=== PATIENT | female | born 1945 | race Caucasian/White ===

== ENCOUNTER → 2017-03-21 11:06 | Emergency (ER) | payer MEDICARE, OTHER ==
[~2017-03-21 11:06] MED LIST: Acetaminophen TAB* 325 MG PO ONE; Ibuprofen TAB* 400 MG ONE; Ibuprofen TAB* 400 MG PO ONE
[2017-03-21 11:13] VITALS: BP 168/94
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
--- NOTE | 2017-03-21 12:27 | RAD ---
Indication: Fall, foot injury. 3 views of the right foot demonstrates diffuse osteopenia. No fracture is identified. No other bone or joint abnormalities identified. Degenerative changes of the first metatarsal phalangeal joint is noted. IMPRESSION: No fracture is identified. Diffuse osteopenia is noted.
--- NOTE | 2017-03-21 12:31 | RAD ---
INDICATION: Fall. Right thumb pain. COMPARISON: None TECHNIQUE: AP, lateral, and oblique views were obtained. FINDINGS: There are no acute bony findings. There is osteopenia. There is interphalangeal and metacarpophalangeal joint space narrowing. There is minor osteoarthritis at the first CMC articulation. There is minor radiocarpal osteoarthritis. There is mild ulnar deviation at the MCP joints. The soft tissues are normal. IMPRESSION: ARTHRITIC CHANGE. NO ACUTE FINDINGS
== END | disposition home or self-care (01) ==
LOC: ED 11:06
DX: S90.31XA Contusion of right foot, initial encounter (principal); M79.1 Myalgia; W19.XXXA Unspecified fall, initial encounter; Y93.9 Activity, unspecified; Y92.9 Unspecified place or not applicable; Y99.9 Unspecified external cause status
CPT/HCPCS: 99282; A9270-GY

== ENCOUNTER 2017-10-13 18:24 | Emergency (ER) | payer MEDICARE ==
[2017-10-13] MEDS ORDERED: Acetaminophen ADULT LIQ* 650 MG/20.3 ML UDC PO ONE (19:36)
[2017-10-13 20:09] LABS: ABS Basophils 0.1 10^3/ul (0-0.2); ABS Eosinophils 0.2 10^3/ul (0-0.6); ABS Lymphocytes 1.9 10^3/ul (1.0-4.8); ABS Monocytes 0.7 10^3/ul (0-0.8); ABS Neutrophils 4.5 10^3/ul (1.5-7.7); ABS Nucleated RBC 0 10^3/ul; Eosinophil % 2.3 % (0-6); Hematocrit 42 % (35-47); Hemoglobin 13.5 g/dl (12.0-16.0); Mean Corpuscular HGB Conc 32 g/dl (31-36); Mean Corpuscular Hemoglobin 31 pg (27-31); Mean Corpuscular Volume 96 fL (80-97); Mean Platelet Volume 8 um3 (7.4-10.4); Nucleated Red Blood Cells % 0; Platelet Count 310 10^3/ul (150-450); Red Blood Count 4.36 10^6/ul (4.0-5.4); Red Cell Distribution Width 17 % (10.5-15); White Blood Count 7.5 10^3/ul (3.5-10.8)
[2017-10-13 20:10] LABS: EGFR Non-African American 47.1 (>60)
[2017-10-13 20:11] VITALS: BP 176/110
--- NOTE | 2017-10-13 20:13 | RAD ---
INDICATION: Intracranial injury COMPARISON: CT brain September 06, 2015 TECHNIQUE: Noncontrast axial source images were acquired from the skull base to the vertex. FINDINGS: Ventricles/sulci: The ventricles and cisterns unchanged with diffuse cortical volume loss with compensatory dilatation of the ventricles and CSF spaces. This is particular prominent in the frontal lobes.. Brain parenchyma: There is periventricular and subcortical white matter change compatible with chronic ischemia. Intracranial hemorrhage:None. Extra-axial spaces: There are no abnormal extra axial fluid collections or evidence of extra-axial mass. Calvarium: There is no calvarial fracture or other calvarial abnormality. Scalp: There is no evidence of scalp or extracalvarial soft tissue abnormality. Paranasal sinuses/mastoid: The paranasal sinuses and mastoid air cells are clear. Other: None. IMPRESSION: NO ACUTE INTRACRANIAL FINDINGS. DIFFUSE CORTICAL INVOLUTIONAL CHANGES WITH FRONTAL LOBE PREDILECTION, UNCHANGED.
--- NOTE | 2017-10-13 20:16 | RAD ---
INDICATION: Fell out of bed. Injury. COMPARISON: Cervical spine September 06, 2015 TECHNIQUE: Noncontrast axial source images was performed from the skull base to the thoracic inlet. Coronal and and sagittal reformatted images were generated. FINDINGS: Vertebrae: There is no fracture or acute focal bony lesion. There are postoperative changes with anterior cervical fusion from C4 through C6. There is no evidence of hardware failure. There is advanced degenerative disc disease both above and below the levels of fusion appearing unchanged Alignment: The craniocervical junction appears normal. The cervical vertebrae are normally aligned. Central Canal: There are no significant CT abnormalities of the central canal or foramina. MR imaging is a more sensitive method to evaluate the canal and foramina. Intervertebral disc spaces: As above. Brain: The visualized brain appears unremarkable. Soft tissues: There is a 1.3 cm left thyroid nodule, unchanged. The prevertebral soft tissues appear normal. The lung apices are clear. IMPRESSION: No acute findings. Anterior fusion C4-C6. Underlying osteoarthritis
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
== END 2017-10-13 21:03 | disposition home or self-care (01) ==
LOC: ED 18:24
DX: S00.03XA Contusion of scalp, initial encounter (principal); W06.XXXA Fall from bed, initial encounter; Y93.9 Activity, unspecified; Y92.9 Unspecified place or not applicable; M54.6 Pain in thoracic spine; M54.2 Cervicalgia; R41.82 Altered mental status, unspecified; E11.9 Type 2 diabetes mellitus without complications; E04.1 Nontoxic single thyroid nodule; I10 Essential (primary) hypertension; Z95.0 Presence of cardiac pacemaker; Z86.711 Personal history of pulmonary embolism; K21.9 Gastro-esophageal reflux disease without esophagitis; Z87.440 Personal history of urinary (tract) infections; F41.9 Anxiety disorder, unspecified; F32.9 Major depressive disorder, single episode, unspecified
CPT/HCPCS: 36415; 70450; 72125; 80053; 85025; 99282

== ENCOUNTER 2017-10-20 19:02 | Inpatient (IN) | payer MEDICARE ==
[2017-10-20 19:34] LABS: ABS Basophils 0.1 10^3/ul (0-0.2); ABS Eosinophils 0.2 10^3/ul (0-0.6); ABS Lymphocytes 1.6 10^3/ul (1.0-4.8); ABS Monocytes 0.8 10^3/ul (0-0.8); ABS Neutrophils 5.5 10^3/ul (1.5-7.7); ABS Nucleated RBC 0.01 10^3/ul; Eosinophil % 2.8 % (0-6); Hematocrit 43 % (35-47); Hemoglobin 14.3 g/dl (12.0-16.0); Lymphocyte % 19.5 % (25-47); Mean Corpuscular HGB Conc 34 g/dl (31-36); Mean Corpuscular Hemoglobin 32 pg (27-31); Mean Corpuscular Volume 95 fL (80-97); Mean Platelet Volume 8 um3 (7.4-10.4); Nucleated Red Blood Cells % 0.1; Platelet Count 246 10^3/ul (150-450); Red Blood Count 4.47 10^6/ul (4.0-5.4); Red Cell Distribution Width 16 % (10.5-15); White Blood Count 8.3 10^3/ul (3.5-10.8)
[2017-10-20 19:44] LABS: INR 0.99 (0.77-1.02)
[2017-10-20] MEDS ORDERED: Iodixanol* (CONTRAST) 320 MG/ML 100 ML SDV IV ONE (20:27)
[2017-10-20 20:43] LABS: Urine Appearance Clear; Urine Blood Negative (Negative); Urine Color Yellow; Urine Ketones Negative (Negative); Urine Protein Negative (Negative); Urine Urobilinogen Negative (Negative)
--- NOTE | 2017-10-20 21:15 | RAD ---
Indication: Fall, head injury. CT of the brain was performed without IV contrast. Ventricular structures are midline. No midline shift is noted. Central and cortical atrophy is noted. Mastoid air cells and paranasal sinuses are otherwise unremarkable. Mastoid air cells and paranasal sinuses are unremarkable. When compared to previous exam of October 13, 2017 no significant change is noted. IMPRESSION: No intracranial mass or hemorrhage is noted. Diffuse involutional changes of the brain.
[2017-10-20] MEDS ORDERED: Lidocaine PATCH 5%* 1 PATCH ONE (21:16)
--- NOTE | 2017-10-20 21:30 | RAD ---
Indication: Fall, head injury and neck pain. CT of the cervical spine was obtained in the axial plane. Sagittal and coronal reconstructed images were obtained. Comparison is made with previous exam dated October 13, 2017. There is fragmentation of the odontoid process which has been present as far back as 2014. This likely represents an old ununited fracture of the distal tip of the odontoid process. Sclerosis is noted. Calcification of the transverse ligament is noted. There is grade 1 spondylolisthesis of C2 on 3 without fracture. At C3-C4 degenerative disc disease with spondylytic ridge is noted. There is anterior fusion of C5-C6 and C7 with bone graft and anterior plate and screws. Degenerative changes of C6-C7 is noted. Grade 1 spondylolisthesis of C7 on T1 is noted. IMPRESSION: There is likely an old fracture of the tip of the odontoid process which was present as far back as September 05, 2015. This has not significant changed. 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 Anterior fusion of C4-C6 with anterior plate and screws. Degenerative disc disease at C3-C4 and C6-C7 is noted.
--- NOTE | 2017-10-20 21:37 | RAD ---
Indication: Fall, facial injury. CT of the facial bones was obtained in the axial plane. Sagittal and coronal reconstructed images were obtained. There is a comminuted fracture of the nasal arch with fragments on the left and on the right. The arch on the left appears to BE minimally depressed. The tip of the arch is also slightly depressed. The maxilla and nasal spine is intact. The pterygoid plates are intact. The temporal mandibular joint and mandible are unremarkable. Zygomatic arch appears to be intact. The orbits are intact without fracture. Maxillary sinuses also demonstrates no fracture. Degenerative changes of the temporomandibular joints are noted bilaterally. IMPRESSION: Mildly Comminuted fracture of the nasal arch both on the tip, left and right side with slightly depressed tip and the left nasal arch.
--- NOTE | 2017-10-20 21:44 | RAD ---
Indication: Left rib pain, left mid and abdomen pain. Contrast: Administered 65.0 ml of VISAPAQUE 320 mg/ml CT of the chest, abdomen and pelvis was performed after IV contrast administration. Coronal and sagittal reconstructed images were obtained. Oral contrast was given. Inferior thyroid lobes are unremarkable aside from a nodule in the lower pole left lobe measuring 14 mm. Small 3 to 5 mm pretracheal lymph nodes are noted. The heart demonstrates no pericardial effusion. The trachea and major bronchi appear patent. There is some atelectasis in the right lower lobe. Left lung field is clear. Atelectasis may be postoperative in nature. There is a fracture fifth and sixth ribs on the left. There may be healed rib fractures on the right. CT of the abdomen and pelvis demonstrates liver to be normal in size. No intrahepatic ductal dilatation is noted. The patient status post cholecystectomy. The spleen is normal in size. Pancreas demonstrates no mass or pancreatic ductal dilatation. Common duct is not dilated. There is bilateral adrenal hyperplasia noted. The kidneys demonstrate symmetric nephrograms with cortical cyst in the left kidney. No hydronephrosis of either kidney is noted. CT of the abdomen and pelvis demonstrates no dilated loops of bowel. No free fluid is identified. There is a hiatal hernia present. IMPRESSION: Bibasilar atelectasis in the right base. Fractures of left fifth and sixth ribs on the left. Likely healed fractures on the right ribs. Left lower lobe thyroid nodule measuring 14 mm. No evidence of solid organ injury is noted in the abdomen or pelvis.
[2017-10-20] MEDS ORDERED: Lidocaine PATCH 5%* 1 PATCH TRANSDERM ONE (22:00)
[2017-10-20] MEDS ORDERED: Ketorolac INJ* 30 MG/ML 1 ML VIAL IV PUSH ONE (22:18)
[2017-10-20] MEDS ORDERED: HYDROcodone/ACETAMIN 5-325 MG* 1 TAB PO ONE (22:18)
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
[2017-10-20] MEDS ORDERED: Sucralfate TAB* 1 GM PO ONE (23:04)
[2017-10-21] MEDS ORDERED: HYDROcodone/ACETAMIN 5-325 MG* 1 TAB PO ONE (04:19)
[2017-10-21] MEDS ORDERED: Ondansetron INJ* 2 MG/ML VIAL IV ONE (04:20)
[2017-10-21] MEDS ORDERED: Melatonin (NF) 3 MG TAB PO PRN (06:26)
[2017-10-21] MEDS ORDERED: Acetaminophen TAB* 325 MG PO PRN (06:26)
[2017-10-21] MEDS ORDERED: Thiamine IV* 100 MG/ML 2 ML VIAL IM ONE (06:28)
[2017-10-21] MEDS ORDERED: Omeprazole CAP* 20 MG PO PRN (06:28)
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
[2017-10-21] MEDS ORDERED: Metoprolol Tartrate IV* 1 MG/ML 5 ML VIAL IV ONE (06:47)
[2017-10-21 07:09] LABS: ABS Basophils 0.1 10^3/ul (0-0.2); ABS Eosinophils 0.1 10^3/ul (0-0.6); ABS Lymphocytes 1.1 10^3/ul (1.0-4.8); ABS Monocytes 0.9 10^3/ul (0-0.8); ABS Neutrophils 8.5 10^3/ul (1.5-7.7); ABS Nucleated RBC 0 10^3/ul; Eosinophil % 0.7 % (0-6); Hematocrit 41 % (35-47); Hemoglobin 13.5 g/dl (12.0-16.0); Lymphocyte % 10.7 % (25-47); Mean Corpuscular HGB Conc 33 g/dl (31-36); Mean Corpuscular Hemoglobin 32 pg (27-31); Mean Corpuscular Volume 95 fL (80-97); Mean Platelet Volume 8 um3 (7.4-10.4); Nucleated Red Blood Cells % 0; Platelet Count 243 10^3/ul (150-450); Red Blood Count 4.29 10^6/ul (4.0-5.4); Red Cell Distribution Width 16 % (10.5-15); White Blood Count 10.6 10^3/ul (3.5-10.8)
[2017-10-21 07:25] LABS: EGFR Non-African American 33.4 (>60)
[2017-10-21] MEDS: NS 0.9% 1000 ML* 1,000 ML IV SCH ×2 (07:36→18:20)
[2017-10-21] MEDS: Ondansetron INJ* 2 MG/ML VIAL IV PRN ×2 (08:12→20:45)
[2017-10-21] MEDS: LORazepam INJ* 2 MG/ML 1 ML VIAL IM SCH ×5 (08:12→22:06)
[2017-10-21] MEDS: Diltiazem CD CAP* 240 MG PO SCH (08:15)
[2017-10-21] MEDS: Docusate CAP* 100 MG PO SCH ×2 (08:15→20:31)
[2017-10-21] MEDS: Thiamine TAB* 100 MG TAB PO SCH (08:16)
[2017-10-21] MEDS: Multivitamins/Minerals TAB PO SCH (08:16)
[2017-10-21] MEDS: Folic Acid TAB* 1 MG PO SCH (08:16)
[2017-10-21] MEDS ORDERED: Lidocaine PATCH 5%* 1 PATCH TRANSDERM SCH (09:00)
--- NOTE | 2017-10-21 16:02 | PN ---
Subjective Date of Service: 10/21/17 Interval History: Patient is not sure why she is here. She says she fell out of bed, did not hurt herself. When alcohol is mentioned, she has a blank stare. Family History: Unchanged from Admission Social History: Unchanged from Admission Past Medical History: Unchanged from Admission Objective Active Medications: Acetaminophen (Tylenol Tab*) 650 mg PO Q6H PRN PRN Reason: FEVER/PAIN Diltiazem HCl (Cardizem Cd Cap*) 240 mg PO DAILY [facility] Last Admin: 10/21/17 08:15 Dose: 240 mg Docusate Sodium (Colace Cap*) 200 mg PO BID [facility] Last Admin: 10/21/17 08:15 Dose: 200 mg Folic Acid (Folvite Tab*) 1 mg PO DAILY [facility] Last Admin: 10/21/17 08:16 Dose: 1 mg Heparin Sodium (Porcine) (Heparin Vial(*)) 5,000 units SUBCUT Q8HR [facility] Sodium Chloride (Ns 0.9% 1000 Ml*) 1,000 mls @ 100 mls/hr IV PER RATE [facility] Last Admin: 10/21/17 07:36 Dose: 100 mls/hr Lorazepam (Ativan Inj*) 0 - 6 mg IM .PER [facility] PROTOCOL [facility] PRN Reason: Protocol Last Admin: 10/21/17 13:56 Dose: 2 mg Multivitamins/Minerals (Theragran/Minerals Tab*) 1 tab PO DAILY [facility] Last Admin: 10/21/17 08:16 Dose: 1 tab Omeprazole (Prilosec Cap*) 20 mg PO DAILY PRN PRN Reason: HEARTBURN Last Admin: 10/21/17 08:16 Dose: 20 mg Ondansetron HCl (Zofran Inj*) 4 mg IV Q6H PRN PRN Reason: NAUSEA Last Admin: 10/21/17 08:12 Dose: 4 mg Oxycodone HCl (Roxycodone Tab*) 5 mg PO Q4H PRN PRN Reason: PAIN Thiamine HCl (Vitamin B-1 Tab*) 100 mg PO DAILY [facility] Last Admin: 10/21/17 08:16 Dose: 100 mg Tramadol HCl (Ultram*) 50 mg PO Q6H PRN PRN Reason: PAIN Zolpidem Tartrate (Ambien Tab*) 10 mg PO BEDTIME PRN PRN Reason: SLEEP Vital Signs - 8 hr 12/24/17 12/24/17 15:23 15:37 Respiratory 16 Rate O2 Sat by Pulse 97 Oximetry Oxygen Devices in Use Now: None Appearance: awake and no distress Eyes: No Scleral Icterus Ears/Nose/Mouth/Throat: NL Teeth, Lips, Gums Neck: NL Appearance and Movements; NL JVP Respiratory: Symmetrical Chest Expansion and Respiratory Effort Cardiovascular: NL Sounds; No Murmurs; No JVD Skin: No Rash or Ulcers Neurological: - - alert, oriented to self, place, not day Lines/Tubes/Other Access: Clean, Dry and Intact Peripheral IV Nutrition: Taking PO's Result Diagrams: 10/21/17 06:55 10/21/17 06:55 Assess/Plan/Problems-Billing Assessment: 72 year old woman admitted w/ mechanical fall, alcohol withdrawal. - Patient Problems (1) Alcohol withdrawal Current Visit: Yes Status: Acute Priority: High Code(s): F10.239 - ALCOHOL DEPENDENCE WITH WITHDRAWAL, UNSPECIFIED SNOMED Code(s): 228164553 Comment: -Patient requiring PRN ativan today, less often as day goes by -Still at risk of seizure, needs 3-5 day detox, continue [facility] protocol -Will offer patient acute rehab after detox (2) Acute kidney injury Current Visit: Yes Status: Acute Priority: Medium Code(s): N17.9 - ACUTE KIDNEY FAILURE, UNSPECIFIED SNOMED Code(s): 09017607 Comment: -creatinine elevated since admission, concern re prerenal azotemia -continue IVF and recheck in AM (3) DVT prophylaxis Current Visit: Yes Status: Chronic Priority: Low Code(s): EQI8736 - SNOMED Code(s): 791506304 Comment: -SCDs Status and Disposition: Needs full inpatient stay due to risk of seizure in next 2-3 days
[2017-10-21] MEDS: oxyCODONE TAB* 5 MG TAB PO PRN (20:31)
[2017-10-22] MEDS: LORazepam INJ* 2 MG/ML 1 ML VIAL IM SCH ×3 (00:06→05:36)
[2017-10-22] MEDS: traMADol TAB* 50 MG PO PRN ×2 (00:07→16:32)
[2017-10-22] MEDS: oxyCODONE TAB* 5 MG TAB PO PRN (03:33)
[2017-10-22] MEDS: Ondansetron INJ* 2 MG/ML VIAL IV PRN ×2 (03:35→16:09)
[2017-10-22] MEDS: Heparin VIAL(*) 5000 UNITS/ML VIAL (FIVE THOUSAND) SUBCUT SCH ×3 (05:37→21:16)
[2017-10-22] MEDS ORDERED: Omeprazole CAP* 20 MG PO SCH ×2 (06:00→11:00)
[2017-10-22 06:18] LABS: EGFR Non-African American 40.8 (>60)
[2017-10-22] MEDS: Diltiazem CD CAP* 240 MG PO SCH (07:50)
[2017-10-22] MEDS: NS 0.9% 1000 ML* 1,000 ML IV SCH (07:50)
[2017-10-22] MEDS: Multivitamins/Minerals TAB PO SCH (07:50)
[2017-10-22] MEDS: Folic Acid TAB* 1 MG PO SCH (07:51)
[2017-10-22] MEDS: Docusate CAP* 100 MG PO SCH ×2 (07:51→21:15)
[2017-10-22] MEDS: Thiamine TAB* 100 MG TAB PO SCH (07:51)
[2017-10-22] MEDS ORDERED: Dextrose 50% Syringe 50 ML* 25 GM/50 ML SYRINGE IV PUSH PRN (10:18)
[2017-10-22] MEDS: Insulin LISPRO* 1 UNITS UNIT SUBCUT SCH ×3 (12:52→21:10)
[2017-10-22] MEDS: Sucralfate TAB* 1 GM PO SCH ×2 (13:18→16:33)
[2017-10-22] MEDS: Potassium Chlor TAB* 20 MEQ TAB.ER PO ONE ×2 (13:18→13:24)
[2017-10-22] MEDS ORDERED: Potassium Chloride LIQUID* 20 MEQ PACKET PO ONE (14:00)
[2017-10-22] MEDS: Omeprazole CAP* 20 MG PO SCH (16:34)
--- NOTE | 2017-10-22 17:03 | PN ---
Subjective Date of Service: 10/22/17 Interval History: Patient pleasant and somewhat confused, often losing train of thought. Patient was hallucinating per nursing documentation but doesn't remember hallucinating. Patient starts to ask many questions but loses train of thought frequently and makes little sense. Patient states she is having pain in chest and upper abdomen that feels like heartburn, is 8/10 in severity at its worst, does not radiate, is worse with food, and is reproducible with palpation. Patient has 8/ 10 pain in ribs which responds to pain medication. Patient denies melena, N/V, or hematemesis. Patient denies SOB, F/C, Dizziness, palpitations. Patient states that she only drinks 2 glasses of wine a day. Family History: Unchanged from Admission Social History: Unchanged from Admission Past Medical History: Unchanged from Admission Objective Active Medications: Acetaminophen (Tylenol Tab*) 650 mg PO Q6H PRN PRN Reason: FEVER/PAIN Dextrose (D50w Syringe 50 Ml*) 12.5 gm IV PUSH .FOR FS < 60 - SS PRN PRN Reason: FS < 60 Diltiazem HCl (Cardizem Cd Cap*) 240 mg PO DAILY [facility] Last Admin: 10/22/17 07:50 Dose: 240 mg Docusate Sodium (Colace Cap*) 200 mg PO BID [facility] Last Admin: 10/22/17 07:51 Dose: 200 mg Folic Acid (Folvite Tab*) 1 mg PO DAILY [facility] Last Admin: 10/22/17 07:51 Dose: 1 mg Heparin Sodium (Porcine) (Heparin Vial(*)) 5,000 units SUBCUT Q8HR [facility] Last Admin: 10/22/17 13:18 Dose: 5,000 units Insulin Human Lispro (Humalog*) 0 units SUBCUT ACHS [facility] PRN Reason: Protocol Last Admin: 10/22/17 12:52 Dose: Not Given Lorazepam (Ativan Inj*) 0 - 6 mg IM .PER [facility] PROTOCOL [facility] PRN Reason: Protocol Last Admin: 10/22/17 05:36 Dose: 2 mg Multivitamins/Minerals (Theragran/Minerals Tab*) 1 tab PO DAILY [facility] Last Admin: 10/22/17 07:50 Dose: 1 tab Omeprazole (Prilosec Cap*) 40 mg PO 0730,1630 [facility] Last Admin: 10/22/17 16:34 Dose: 40 mg Ondansetron HCl (Zofran Inj*) 4 mg IV Q6H PRN PRN Reason: NAUSEA Last Admin: 10/22/17 16:09 Dose: 4 mg Oxycodone HCl (Roxycodone Tab*) 5 mg PO Q4H PRN PRN Reason: PAIN Last Admin: 10/22/17 03:33 Dose: 5 mg Sucralfate (Carafate*) 1 gm PO AC [facility] Last Admin: 10/22/17 16:33 Dose: 1 gm Thiamine HCl (Vitamin B-1 Tab*) 100 mg PO DAILY [facility] Last Admin: 10/22/17 07:51 Dose: 100 mg Tramadol HCl (Ultram*) 50 mg PO Q6H PRN PRN Reason: PAIN Last Admin: 10/22/17 16:32 Dose: 50 mg Zolpidem Tartrate (Ambien Tab*) 10 mg PO BEDTIME PRN PRN Reason: SLEEP Vital Signs - 8 hr 10/22/17 10/22/17 10/22/17 09:32 11:27 13:53 Temperature 97.7 F 98.3 F 98.3 F Pulse Rate 101 106 111 Respiratory 18 20 20 Rate Blood Pressure 131/79 145/81 133/79 (mmHg) O2 Sat by Pulse 90 89 93 Oximetry 10/22/17 10/22/17 10/22/17 15:16 16:00 16:32 Temperature 98.7 F Pulse Rate 110 Respiratory 16 20 Rate Blood Pressure 141/81 (mmHg) O2 Sat by Pulse 96 93 Oximetry Oxygen Devices in Use Now: Nasal Cannula - 1L Appearance: Patient is a 72yo female who appears stated age and is sitting in the bed in [facility]. Eyes: No Scleral Icterus, PERRLA Ears/Nose/Mouth/Throat: NL Teeth, Lips, Gums, Clear Oropharnyx, Mucous Membranes Moist Neck: NL Appearance and Movements; NL JVP, Trachea Midline Respiratory: Symmetrical Chest Expansion and Respiratory Effort, Clear to Auscultation Cardiovascular: NL Sounds; No Murmurs; No JVD, RRR, No Edema Abdominal: NL Sounds; No Tenderness; No Distention, No Hepatosplenomegaly Lymphatic: No Cervical Adenopathy Extremities: No Edema, No Clubbing, Cyanosis Skin: No Rash or Ulcers, No Nodules or Sclerosis Neurological: Alert and Oriented x 3, NL Sensation, NL Muscle Strength and Tone Result Diagrams: 10/21/17 06:55 10/22/17 05:34 Additional Lab and Data: Lab Results Assess/Plan/Problems-Billing Assessment: 72 year old woman admitted w/ mechanical fall, alcohol withdrawal. - Patient Problems (1) Acute kidney injury Current Visit: Yes Status: Acute Priority: Medium Code(s): N17.9 - ACUTE KIDNEY FAILURE, UNSPECIFIED SNOMED Code(s): 09418639 Comment: Creatinine elevated up to 1.52, concern for SABAS. Improved to 1.20 this morning after fluid. IVF discontinued, will monitor. (2) Alcohol withdrawal Current Visit: Yes Status: Acute Priority: High Code(s): F10.239 - ALCOHOL DEPENDENCE WITH WITHDRAWAL, UNSPECIFIED SNOMED Code(s): 065056448 Comment: Patient requiring PRN ativan today, less often as day goes by Still at risk of seizure, needs 3-5 day detox, continue [facility] protocol Will offer patient acute rehab after detox (3) DVT prophylaxis Current Visit: Yes Status: Chronic Priority: Low Code(s): [id number] - SNOMED Code(s): 298215089 Comment: -SCDs (4) Erosive esophagitis Current Visit: No Status: Acute Priority: High Code(s): K22.10 - ULCER OF ESOPHAGUS WITHOUT BLEEDING SNOMED Code(s): 92848894 Comment: Having pain similar to previous ulcer. BID PPI Sucralafate Etoh avoidance No signs of GI bleed at this time, unable to tell if patient was compliant with previous therapy. Did not have F/U EGD. (5) Hypokalemia Current Visit: Yes Status: Acute Code(s): E87.6 - HYPOKALEMIA SNOMED Code( s): 23793557 Comment: 3.3 this AM. Replaced, will recheck. (6) Full code status Current Visit: Yes Status: Acute Code(s): Z78.9 - OTHER SPECIFIED HEALTH STATUS SNOMED Code(s): 165261054 Status and Disposition: Needs full inpatient stay due to risk of seizure in next 2-3 days
[2017-10-22] MEDS: Zolpidem TAB* 10 MG PO PRN (21:15)
[2017-10-23] MEDS: Heparin VIAL(*) 5000 UNITS/ML VIAL (FIVE THOUSAND) SUBCUT SCH ×3 (05:43→21:25)
[2017-10-23] MEDS: Insulin LISPRO* 1 UNITS UNIT SUBCUT SCH ×4 (08:00→21:25)
[2017-10-23] MEDS: Omeprazole CAP* 20 MG PO SCH ×2 (08:15→16:47)
[2017-10-23] MEDS: Diltiazem CD CAP* 240 MG PO SCH (08:15)
[2017-10-23] MEDS: Docusate CAP* 100 MG PO SCH ×2 (08:16→21:25)
[2017-10-23] MEDS: Folic Acid TAB* 1 MG PO SCH (08:16)
[2017-10-23] MEDS: oxyCODONE TAB* 5 MG TAB PO PRN ×3 (08:16→18:20)
[2017-10-23] MEDS: Sucralfate TAB* 1 GM PO SCH ×3 (08:16→16:47)
[2017-10-23] MEDS: Multivitamins/Minerals TAB PO SCH (08:16)
[2017-10-23] MEDS: Thiamine TAB* 100 MG TAB PO SCH (08:16)
[2017-10-23] MEDS: Ondansetron INJ* 2 MG/ML VIAL IV PRN ×2 (08:17→19:49)
[2017-10-23 13:48] LABS: ABS Basophils 0.1 10^3/ul (0-0.2); ABS Eosinophils 0.2 10^3/ul (0-0.6); ABS Lymphocytes 1.1 10^3/ul (1.0-4.8); ABS Monocytes 0.6 10^3/ul (0-0.8); ABS Neutrophils 5.3 10^3/ul (1.5-7.7); ABS Nucleated RBC 0 10^3/ul; Eosinophil % 3.1 % (0-6); Hematocrit 37 % (35-47); Hemoglobin 12.2 g/dl (12.0-16.0); Lymphocyte % 15.1 % (25-47); Mean Corpuscular HGB Conc 33 g/dl (31-36); Mean Corpuscular Hemoglobin 32 pg (27-31); Mean Corpuscular Volume 97 fL (80-97); Mean Platelet Volume 9 um3 (7.4-10.4); Nucleated Red Blood Cells % 0; Platelet Count 183 10^3/ul (150-450); Red Blood Count 3.84 10^6/ul (4.0-5.4); Red Cell Distribution Width 16 % (10.5-15); White Blood Count 7.3 10^3/ul (3.5-10.8)
--- NOTE | 2017-10-23 13:52 | PN ---
Subjective Date of Service: 10/23/17 Interval History: Patient has continued pain in upper abdomen consistent with previous esophagitis. Patient is much less confused than yesterday. Discussed alcohol use with patient and patient claims she had not had a drink in more than 1 week before admission. Patient states she does not have pain in her ribs at time of interview. Patient denies SOB, N/V, dysuria, F/C, dizziness. Family History: Unchanged from Admission Social History: Unchanged from Admission Past Medical History: Unchanged from Admission Objective Active Medications: Acetaminophen (Tylenol Tab*) 650 mg PO Q6H PRN PRN Reason: FEVER/PAIN Dextrose (D50w Syringe 50 Ml*) 12.5 gm IV PUSH .FOR FS < 60 - SS PRN PRN Reason: FS < 60 Diltiazem HCl (Cardizem Cd Cap*) 240 mg PO DAILY [facility] Last Admin: 10/23/17 08:15 Dose: 240 mg Docusate Sodium (Colace Cap*) 200 mg PO BID [facility] Last Admin: 10/23/17 08:16 Dose: 200 mg Folic Acid (Folvite Tab*) 1 mg PO DAILY [facility] Last Admin: 10/23/17 08:16 Dose: 1 mg Heparin Sodium (Porcine) (Heparin Vial(*)) 5,000 units SUBCUT Q8HR [facility] Last Admin: 10/23/17 12:55 Dose: 5,000 units Insulin Human Lispro (Humalog*) 0 units SUBCUT ACHS [facility] PRN Reason: Protocol Last Admin: 10/23/17 12:55 Dose: 2 units Lorazepam (Ativan Inj*) 0 - 6 mg IM .PER [facility] PROTOCOL [facility] PRN Reason: Protocol Last Admin: 10/22/17 05:36 Dose: 2 mg Multivitamins/Minerals (Theragran/Minerals Tab*) 1 tab PO DAILY [facility] Last Admin: 10/23/17 08:16 Dose: 1 tab Omeprazole (Prilosec Cap*) 40 mg PO 0730,1630 [facility] Last Admin: 10/23/17 08:15 Dose: 40 mg Ondansetron HCl (Zofran Inj*) 4 mg IV Q6H PRN PRN Reason: NAUSEA Last Admin: 10/23/17 08:17 Dose: 4 mg Oxycodone HCl (Roxycodone Tab*) 5 mg PO Q4H PRN PRN Reason: PAIN Last Admin: 10/23/17 08:16 Dose: 5 mg Sucralfate (Carafate*) 1 gm PO AC [facility] Last Admin: 10/23/17 12:55 Dose: 1 gm Thiamine HCl (Vitamin B-1 Tab*) 100 mg PO DAILY [facility] Last Admin: 10/23/17 08:16 Dose: 100 mg Tramadol HCl (Ultram*) 50 mg PO Q6H PRN PRN Reason: PAIN Last Admin: 10/22/17 16:32 Dose: 50 mg Zolpidem Tartrate (Ambien Tab*) 10 mg PO BEDTIME PRN PRN Reason: SLEEP Last Admin: 10/22/17 21:15 Dose: 10 mg Vital Signs - 8 hr 10/23/17 10/23/17 10/23/17 06:46 07:39 08:00 Temperature 97.6 F 97.7 F Pulse Rate 95 94 Respiratory 18 18 16 Rate Blood Pressure 157/88 145/79 (mmHg) O2 Sat by Pulse 97 97 Oximetry 10/23/17 10/23/17 10/23/17 08:12 08:16 09:31 Temperature 98.5 F Pulse Rate 106 Respiratory 18 Rate Blood Pressure 151/68 (mmHg) O2 Sat by Pulse 97 94 Oximetry 10/23/17 10:26 Temperature Pulse Rate Respiratory 16 Rate Blood Pressure (mmHg) O2 Sat by Pulse Oximetry Oxygen Devices in Use Now: None Appearance: Patient is a 72yo female who appears stated age and is sitting in the bed in [facility]. Eyes: No Scleral Icterus, PERRLA Ears/Nose/Mouth/Throat: NL Teeth, Lips, Gums, Clear Oropharnyx, Mucous Membranes Moist Neck: NL Appearance and Movements; NL JVP, Trachea Midline Respiratory: Symmetrical Chest Expansion and Respiratory Effort, Clear to Auscultation Cardiovascular: RRR, No Edema, - - Grade 2/6 systolic ejection murmur heard best at RUSB. Abdominal: No Hepatosplenomegaly, - - Tenderness to palpation over epigastric area and tenderness to palpation over LLQ. Lymphatic: No Cervical Adenopathy Extremities: No Edema, No Clubbing, Cyanosis Skin: No Rash or Ulcers, No Nodules or Sclerosis Neurological: Alert and Oriented x 3, NL Sensation, NL Muscle Strength and Tone Result Diagrams: 10/21/17 06:55 10/22/17 05:34 Additional Lab and Data: Lab Results Assess/Plan/Problems-Billing Assessment: 72 year old woman admitted w/ mechanical fall, alcohol withdrawal. - Patient Problems (1) Acute kidney injury Current Visit: Yes Status: Acute Priority: Medium Code(s): N17.9 - ACUTE KIDNEY FAILURE, UNSPECIFIED SNOMED Code(s): 38733032 Comment: Creatinine elevated up to 1.52, concern for SABAS. Improved to 1.20 this morning after fluid. IVF discontinued, will monitor. (2) Alcohol withdrawal Current Visit: Yes Status: Acute Priority: High Code(s): F10.239 - ALCOHOL DEPENDENCE WITH WITHDRAWAL, UNSPECIFIED SNOMED Code(s): 363558319 Comment: No ativan given today. Patient not interested in rehab, unclear if able to take care of self at home. (3) DVT prophylaxis Current Visit: Yes Status: Chronic Priority: Low Code(s): AYD5859 - SNOMED Code(s): 667790197 Comment: -SCDs (4) Erosive esophagitis Current Visit: No Status: Acute Priority: High Code(s): K22.10 - ULCER OF ESOPHAGUS WITHOUT BLEEDING SNOMED Code(s): 92824490 Comment: Having pain similar to previous ulcer. BID PPI Sucralafate Etoh avoidance No signs of GI bleed at this time, patient states that she took her previous treatment recommended by GI, but could not say what that treatment was. Did not have F/U EGD. (5) Hypokalemia Current Visit: Yes Status: Acute Code(s): E87.6 - HYPOKALEMIA SNOMED Code( s): 65285280 Comment: 3.3 this AM. Replaced, will recheck. (6) Full code status Current Visit: Yes Status: Acute Code(s): Z78.9 - OTHER SPECIFIED HEALTH STATUS SNOMED Code(s): 351157067 Status and Disposition: Needs full inpatient stay due to risk of seizure. Will discharge when able.
[2017-10-23 14:12] LABS: EGFR Non-African American 45.2 (>60)
[2017-10-23] MEDS: traMADol TAB* 50 MG PO PRN (16:47)
[2017-10-23] MEDS: LORazepam INJ* 2 MG/ML 1 ML VIAL IM SCH ×2 (20:09→23:46)
[2017-10-23] MEDS: Zolpidem TAB* 10 MG PO PRN (21:25)
[2017-10-23] MEDS ORDERED: Magnesium Sulfate IV* 3 GM in NS 0.9% 100 ML* 100 ML IVPB ONE (22:00)
[2017-10-24] MEDS: oxyCODONE TAB* 5 MG TAB PO PRN ×2 (01:06→21:17)
[2017-10-24 04:46] LABS: ABS Basophils 0.1 10^3/ul (0-0.2); ABS Eosinophils 0.3 10^3/ul (0-0.6); ABS Lymphocytes 1.8 10^3/ul (1.0-4.8); ABS Monocytes 0.7 10^3/ul (0-0.8); ABS Neutrophils 4.9 10^3/ul (1.5-7.7); ABS Nucleated RBC 0.01 10^3/ul; Eosinophil % 3.9 % (0-6); Hematocrit 35 % (35-47); Hemoglobin 11.5 g/dl (12.0-16.0); Mean Corpuscular HGB Conc 33 g/dl (31-36); Mean Corpuscular Hemoglobin 32 pg (27-31); Mean Corpuscular Volume 97 fL (80-97); Mean Platelet Volume 9 um3 (7.4-10.4); Nucleated Red Blood Cells % 0.1; Platelet Count 162 10^3/ul (150-450); Red Blood Count 3.59 10^6/ul (4.0-5.4); Red Cell Distribution Width 16 % (10.5-15); White Blood Count 7.9 10^3/ul (3.5-10.8)
[2017-10-24 05:03] LABS: EGFR Non-African American 40.8 (>60)
[2017-10-24] MEDS: Heparin VIAL(*) 5000 UNITS/ML VIAL (FIVE THOUSAND) SUBCUT SCH ×3 (05:51→20:58)
[2017-10-24] MEDS: Insulin LISPRO* 1 UNITS UNIT SUBCUT SCH ×3 (07:50→16:53)
[2017-10-24] MEDS: Multivitamins/Minerals TAB PO SCH (09:33)
[2017-10-24] MEDS: Thiamine TAB* 100 MG TAB PO SCH (09:33)
[2017-10-24] MEDS: Omeprazole CAP* 20 MG PO SCH ×2 (09:33→16:59)
[2017-10-24] MEDS: Diltiazem CD CAP* 240 MG PO SCH (09:33)
[2017-10-24] MEDS: Sucralfate TAB* 1 GM PO SCH ×3 (09:34→16:59)
[2017-10-24] MEDS: Folic Acid TAB* 1 MG PO SCH (09:34)
[2017-10-24] MEDS: Docusate CAP* 100 MG PO SCH ×2 (09:34→20:58)
[2017-10-24] MEDS ORDERED: Senna TAB PO PRN (14:46)
--- NOTE | 2017-10-24 14:53 | PN ---
Subjective Date of Service: 10/24/17 Interval History: Patient is significantly more sedated and less lucid today. Patient received 4mg ativan overnight from [facility] protocol. Patient complains of pain in ribs and abdomen again today. Patient states it is slightly less than yesterday. Patient denies SOB, N/V, Diarrhea, Patient states it has been 2 weeks since her last bowel movement but stated she had been having diarrhea 2 days ago. Last documented BM in 10/21. Patient denies dysuria, dizziness, or other pain. Family History: Unchanged from Admission Social History: Unchanged from Admission Past Medical History: Unchanged from Admission Objective Active Medications: Acetaminophen (Tylenol Tab*) 650 mg PO Q6H PRN PRN Reason: FEVER/PAIN Dextrose (D50w Syringe 50 Ml*) 12.5 gm IV PUSH .FOR FS < 60 - SS PRN PRN Reason: FS < 60 Diltiazem HCl (Cardizem Cd Cap*) 240 mg PO DAILY [facility] Last Admin: 10/24/17 09:33 Dose: 240 mg Docusate Sodium (Colace Cap*) 200 mg PO BID [facility] Last Admin: 10/24/17 09:34 Dose: 200 mg Folic Acid (Folvite Tab*) 1 mg PO DAILY [facility] Last Admin: 10/24/17 09:34 Dose: 1 mg Heparin Sodium (Porcine) (Heparin Vial(*)) 5,000 units SUBCUT Q8HR [facility] Last Admin: 10/24/17 13:29 Dose: 5,000 units Insulin Human Lispro (Humalog*) 0 units SUBCUT ACHS [facility] PRN Reason: Protocol Last Admin: 10/24/17 11:46 Dose: Not Given Lorazepam (Ativan Inj*) 0 - 6 mg IM .PER [facility] PROTOCOL [facility] PRN Reason: Protocol Last Admin: 10/23/17 23:46 Dose: 2 mg Multivitamins/Minerals (Theragran/Minerals Tab*) 1 tab PO DAILY [facility] Last Admin: 10/24/17 09:33 Dose: 1 tab Omeprazole (Prilosec Cap*) 40 mg PO 0730,1630 [facility] Last Admin: 10/24/17 09:33 Dose: 40 mg Ondansetron HCl (Zofran Inj*) 4 mg IV Q6H PRN PRN Reason: NAUSEA Last Admin: 10/23/17 19:49 Dose: 4 mg Oxycodone HCl (Roxycodone Tab*) 5 mg PO Q4H PRN PRN Reason: PAIN Last Admin: 10/24/17 01:06 Dose: 5 mg Sucralfate (Carafate*) 1 gm PO AC [facility] Last Admin: 10/24/17 12:01 Dose: 1 gm Thiamine HCl (Vitamin B-1 Tab*) 100 mg PO DAILY [facility] Last Admin: 10/24/17 09:33 Dose: 100 mg Tramadol HCl (Ultram*) 50 mg PO Q6H PRN PRN Reason: PAIN Last Admin: 10/23/17 16:47 Dose: 50 mg Zolpidem Tartrate (Ambien Tab*) 10 mg PO BEDTIME PRN PRN Reason: SLEEP Last Admin: 10/23/17 21:25 Dose: 10 mg Vital Signs - 8 hr 10/24/17 10/24/17 07:33 08:00 Temperature 98.1 F Pulse Rate 100 Respiratory 15 16 Rate Blood Pressure 154/71 (mmHg) O2 Sat by Pulse 93 Oximetry Oxygen Devices in Use Now: None Appearance: Patient is a 72yo female who appears stated age and is sitting in the bed in [facility]. Eyes: No Scleral Icterus, PERRLA Ears/Nose/Mouth/Throat: NL Teeth, Lips, Gums, Clear Oropharnyx, Mucous Membranes Moist Neck: NL Appearance and Movements; NL JVP, Trachea Midline Respiratory: Symmetrical Chest Expansion and Respiratory Effort, Clear to Auscultation Cardiovascular: RRR, No Edema, - - Grade 2/6 systolic ejection murmur heard best at RUSB. Abdominal: No Hepatosplenomegaly, - - Pain with palpation over the epigastrum. Lymphatic: No Cervical Adenopathy Extremities: No Edema, No Clubbing, Cyanosis Skin: No Rash or Ulcers, No Nodules or Sclerosis Neurological: NL Sensation, NL Muscle Strength and Tone, - - A/Ox1, uncooperative with questioning. CN II-XII intact. Result Diagrams: 10/24/17 04:37 10/24/17 06:38 Additional Lab and Data: Lab Results Assess/Plan/Problems-Billing Assessment: 72 year old woman admitted w/ mechanical fall, alcohol withdrawal - Patient Problems (1) Alcohol withdrawal Current Visit: Yes Status: Acute Priority: High Code(s): F10.239 - ALCOHOL DEPENDENCE WITH WITHDRAWAL, UNSPECIFIED SNOMED Code(s): 305632743 Comment: Patient still disoriented but showing no other signs of withdrawal. WAM discontinued. Talked with son and disorientation alf and possibly related to narcotic pain medication abuse which she may be taking more than prescribed from diverting. (2) Acute kidney injury Current Visit: Yes Status: Acute Priority: Medium Code(s): N17.9 - ACUTE KIDNEY FAILURE, UNSPECIFIED SNOMED Code(s): 66124996 Comment: Creatinine elevated up to 1.52, At 1.20 this morning Will monitor. (3) Erosive esophagitis Current Visit: No Status: Acute Priority: High Code(s): K22.10 - ULCER OF ESOPHAGUS WITHOUT BLEEDING SNOMED Code(s): 91760720 Comment: Having pain similar to previous ulcer. BID PPI Sucralafate Etoh avoidance No signs of GI bleed at this time, patient states that she took her previous treatment recommended by GI, but could not say what that treatment was. Did not have F/U EGD. (4) Hypokalemia Current Visit: Yes Status: Acute Code(s): E87.6 - HYPOKALEMIA SNOMED Code( s): 31596256 Comment: 3.3 this AM. Recheck pending due to hemolyzed sample x2 (5) Diabetes mellitus Current Visit: Yes Status: Acute Code(s): E11.9 - TYPE 2 DIABETES MELLITUS WITHOUT COMPLICATIONS SNOMED Code(s): 29139523 Comment: Hemoglobin A1c 6.9. On no home treatment. SSI and FSBG. Episode of hypoglycemia this AM which resolved with orange juice. (6) Rib fracture Current Visit: Yes Status: Acute Code(s): S22.39XA - FRACTURE OF ONE RIB, UNSP SIDE, INIT FOR CLOS FX SNOMED Code(s): 76900329 Comment: Fracture of left 5th and 6th ribs. Non-displaced, no evidence of internal injury. Oxycodone prescribed and used frequently. Would recommend tapering when out of acute phase of rib fracture. (7) Nasal fracture Current Visit: Yes Status: Acute Code(s): S02.2XXA - FRACTURE OF NASAL BONES , INIT ENCNTR FOR CLOSED FRACTURE SNOMED Code(s): 725133601 Comment: Present on CT, no deformity or tenderness on exam. (8) Full code status Current Visit: Yes Status: Acute Code(s): Z78.9 - OTHER SPECIFIED HEALTH STATUS SNOMED Code(s): 039162185 (9) DVT prophylaxis Current Visit: Yes Status: Chronic Priority: Low Code(s): AJM4432 - SNOMED Code(s): 847461890 Comment: -SCDs and Heparin SubQ Status and Disposition: Patient [facility] to go [facility] and to have more help at home if needed.
[2017-10-24] MEDS: Zolpidem TAB* 10 MG PO PRN (20:58)
[2017-10-25] MEDS: Heparin VIAL(*) 5000 UNITS/ML VIAL (FIVE THOUSAND) SUBCUT SCH ×2 (05:36→12:59)
[2017-10-25 08:39] LABS: ABS Basophils 0 10^3/ul (0-0.2); ABS Eosinophils 0.2 10^3/ul (0-0.6); ABS Lymphocytes 0.9 10^3/ul (1.0-4.8); ABS Monocytes 0.9 10^3/ul (0-0.8); ABS Neutrophils 4.6 10^3/ul (1.5-7.7); ABS Nucleated RBC 0 10^3/ul; Eosinophil % 3.1 % (0-6); Hematocrit 36 % (35-47); Lymphocyte % 14.3 % (25-47); Mean Corpuscular HGB Conc 33 g/dl (31-36); Mean Corpuscular Hemoglobin 32 pg (27-31); Mean Corpuscular Volume 97 fL (80-97); Mean Platelet Volume 8 um3 (7.4-10.4); Nucleated Red Blood Cells % 0; Platelet Count 192 10^3/ul (150-450); Red Blood Count 3.77 10^6/ul (4.0-5.4); Red Cell Distribution Width 16 % (10.5-15); White Blood Count 6.6 10^3/ul (3.5-10.8)
[2017-10-25] MEDS: Docusate CAP* 100 MG PO SCH (08:52)
[2017-10-25] MEDS: Multivitamins/Minerals TAB PO SCH (08:52)
[2017-10-25] MEDS: Folic Acid TAB* 1 MG PO SCH (08:52)
[2017-10-25] MEDS: Diltiazem CD CAP* 240 MG PO SCH (08:52)
[2017-10-25] MEDS: Thiamine TAB* 100 MG TAB PO SCH (08:52)
[2017-10-25] MEDS: Omeprazole CAP* 20 MG PO SCH (08:52)
[2017-10-25] MEDS: Sucralfate TAB* 1 GM PO SCH ×2 (08:52→11:32)
[2017-10-25 08:54] LABS: EGFR Non-African American 55.5 (>60)
[2017-10-25] MEDS: Insulin LISPRO* 1 UNITS UNIT SUBCUT SCH ×2 (08:55→12:59)
[2017-10-25] MEDS ORDERED: oxyCODONE TAB* 5 MG TAB PO PRN (09:03)
[2017-10-25] MEDS: traMADol TAB* 50 MG PO PRN (09:09)
[2017-10-25] MEDS ORDERED: Magnesium Oxide TAB* 400 MG PO SCH (10:00)
--- NOTE | 2017-10-25 13:33 | DS ---
CC: Dr. Rosa Tran; [facility]* DATE OF ADMISSION: 10/20/2017. DATE OF DISCHARGE: 10/25/2017. PRIMARY CARE PHYSICIAN: Dr. Rosa Tran. ATTENDING PHYSICIAN: Dr. Lauren Gorman* (dictated by DIVINE Zuluaga). PRIMARY DISCHARGE DIAGNOSES: Fall, left-sided rib fractures, alcohol withdrawal , and esophagitis. SECONDARY DISCHARGE DIAGNOSES: Diabetes mellitus type 2, hypertension, GERD, chronic pain, osteoporosis, insomnia, history of pulmonary embolism, asystole from sick sinus syndrome with pacemaker implantation. STUDIES DONE WHILE IN THE HOSPITAL: 1. Electrocardiogram from 10/20/2017 shows sinus tachycardia, no ST segment changes, no left axis deviation, no signs of hypertrophy or enlargement, no blocks, QTC of 459, no other abnormalities. 2. Brain CT from 10/20/2017, read as: No intracranial mass or hemorrhage, diffuse involutional change of the brain. 3. Cervical spine CT from 10/20/2017, read as: There is an old fracture of the tip of the odontoid process which was present as far back as September 05, 2015. This is no significant change. 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 Anterior fusion of C4 to C6 with anterior plate and screws. Degenerative disk disease at C3-4 and C6-7 is noted. 4. Chest, abdomen, pelvis CT from 10/20/2017, read as: Bibasilar atelectasis. Fractures of the fifth and sixth ribs on the left. Likely healed fractures of the right ribs. Left lower lobe thyroid nodule measuring 14 mm. No evidence of solid organ injury is noted in the abdomen or pelvis. 5. Maxillofacial CT from 10/20/2017, read as: Mildly comminuted fracture of the nasal arch on the tip, left and right side with slightly depressed tip of the nasal arch. MEDICATIONS AT DISCHARGE: 1. Zofran 4 mg ODT tab p.o. q.8 hours as needed. 2. Diltiazem CD 240 mg p.o. daily. 3. Zolpidem 10 mg p.o. at bedtime as needed. 4. Tylenol 650 mg p.o. q.6 hours as needed. 5. Colace 100 mg p.o. b.i.d. as needed. 6. Folic acid 1 mg p.o. daily. 7. Magnesium Oxide 400 mg p.o. daily. 8. Omeprazole 40 mg p.o. b.i.d. 9. Senna one tab p.o. daily as needed. 10. Carafate 1 gm p.o. a.c. as needed. 11. Thiamin 100 mg p.o. daily. 12. Tramadol 50 mg p.o. q.6 hours as needed. 13. Januvia 100 mg p.o. daily. 14. Oxycodone 5 mg p.o. q.6 hours as needed. Medications discontinued at home: 1. [place] 5/325 one tab p.o. q.6 hours as needed. 2. Prilosec 20 mg p.o. daily as needed. New medications at discharge: Tylenol, Colace, folic acid, magnesium oxide, Omeprazole, Senna, Carafate, Thiamin, Tramadol, Sitagliptin, Oxycodone. HOSPITAL COURSE: This is a brief summary of the patient's presentation. For more details, please see the history and physical from Dr. Richard Marley on 10/21/2017. In brief, the patient is a 72-year-old female with a past medical history significant for the above who fell out of bed to go to the bathroom three times and EMS was called. The patient came in with her . EMS had concerns about the state of their home which was dirty and had wine bottles scattered about. The patient's was transferred to a higher level of care due to newly discovered hepatic failure. The patient was admitted to the hospital and found to have rib fractures as above. The patient's nasal fracture is old according to her. The patient was admitted to the hospital with the WAM protocol and began soon to display signs of withdrawal from alcohol, including tachycardia and diarrhea and altered mental status. The patient was given Ativan consistently until the morning of 10/23/2017, but at tapering levels corresponding with the improvement in her mental status and WAM scores. The patient had elevated blood sugars on her morning lab work. The patient also had an acute kidney injury with a creatinine of 1.52 at its highest which is up from her baseline of around 0.7. The patient had persistently elevated blood sugars on her morning lab work and a hemoglobin A1c was drawn which was 6.9, indicating moderately well-controlled diabetes mellitus. The patient is not on any medications at home. The patient was started on sliding scale insulin and fingersticks a.c. and at bedtime which went from a low of 68 in the morning of October 24 to a high of 246 in the evening of October 24. This was with the patient not eating very much due to her altered mental status. The patient had consistent altered mental status and complained of significant pain throughout her entire hospitalization. The patient complained of pain on her left side corresponding to her ribs and when prompted complained of abdominal pain which she claimed to be severe, but showed no external signs of being in pain from either of these sources. The patient was previously admitted to this hospital and diagnosed with esophagitis via EGD. The patient was supposed to be on Omeprazole 40 mg p.o. b.i.d. and Carafate 1 gm a.c. The patient claims to have taken these, but they are not on her external medication and there is no documentation of them anywhere else in her record that she has been taking them. The patient is a poor historian. The patient was supposed to have a follow-up EGD in six to eight weeks which would have corresponded to October of this year, which she never had. The patient was re-placed on these medications with moderate improvement of her abdominal pain. The patient was evaluate by Physical Therapy and identified to have ongoing needs for skilled physical therapy. The patient's family also related a concern for a long-term decrease in her functional status, mental status and ability to take care of herself. The patient was in agreement to subacute rehab to help restore her functional status, maintain her absence from alcohol and hopefully wean down her narcotic pain medication use which her family states correlated with her change in mental status. The patient had no other abnormalities while in the hospital. The patient was persistently hypomagnesemic while in the hospital and was started on a daily magnesium supplement. PHYSICAL EXAMINATION ON THE DAY OF DISCHARGE: General: The patient is a 72- year- old female who appears stated age and sitting comfortably in bed, in no acute distress. Vital Signs: At discharge, temperature 98.4, heart rate 103, respiratory rate 20, oxygen saturation 94 percent on room air, blood pressure 148/73. HEENT: Head normocephalic, atraumatic. Sclerae anicteric. No conjunctival injection. The nose is visibly deformed to the left side with no tenderness to palpation and no crepitus. Nasal mucosa moist. Oral mucosa moist. No pharyngeal erythema, exudates or postnasal drainage. Dentition is intact. Neck: Supple, nontender. No lymphadenopathy. No carotid bruit auscultated. Cardiac: Regular rate and rhythm. Grade 2/6 systolic ejection murmur heard best at the right upper sternal border. No other adventitious heart sounds. Rate of 80 to 100. Pulse 2+ in the bilateral dorsalis pedis, posterior tibialis and radial areas. No lower extremity edema noted. Respiratory: Clear to auscultation bilaterally. No wheezes, rales or rhonchi. Good air exchange bilaterally. Abdomen: Bowel sounds present, normoactive in all four quadrants. Pain states she has moderate tenderness over the epigastric area without voluntary or involuntary guarding. No hepatosplenomegaly. No abdominal bruits auscultated. Genitourinary: No suprapubic tenderness, no CVA tenderness. Skin: Clean, dry, intact. No rash or ecchymosis. Neuro: Cranial nerve II through XII grossly intact. No signs of ataxia or weakness. No focal deficits. Sensation to light touch intact throughout. Reflexes 1+ in the bilateral biceps, patellar and Achilles tendons. The patient is alert and oriented to self and place. The patient is very confused. Psychiatric: Pleasant and cooperative. LABORATORY DATA ON THE DAY OF DISCHARGE: White blood cell count 6.6, hemoglobin 12.0, platelet count 192; sodium 136, potassium 3.5, chloride 106, carbon dioxide 24, anion gap 6, BUN 15, creatinine 0.98, glucose 147, calcium 8.6, magnesium 1.6. DISCHARGE PLAN: The patient will be discharge to [facility] for subacute rehab. From there, she should consider going to alcohol rehab. The patient is unable to take care of herself at home. The patient has altered mental status likely due to her narcotic abuse. The patient does not have signs of Wernicke' s encephalopathy or Korsakoff's syndrome. It should be attempted to wean the patient off of opiate pain medication as much as possible while she is in the hospital. This may not be possible during the acute phase of her rib fractures. The patient had relatively uncontrolled blood sugars while in the hospital despite not eating very much. The patient had acute kidney injury, so will be started on Januvia 100 mg p.o. daily. The patient should be monitored for side effects from this such as pancreatitis. The patient should continue on her maximum dose PPI therapy as well as Sucralfate. If the patient does not improve on therapy as well as with absence from alcohol, a repeat EGD, which was recommended previously, should be performed. ACTIVITY: The patient should engage in activity as tolerated. Working with PT and OT to maximize functional status. DIET: The patient should have a consistent carbohydrate diet avoiding overly spicy or acidic foods. TIME SPENT: Approximately 60 minutes were spent on this discharge, 30 of which were spent [id number] with the patient and talking to the family on the phone discussing treatment plan. DIVINE ZULUAGA [id number]/CPS #: [id number] MTDD
[2017-10-25 14:34] VITALS: BP 126/85
== END 2017-10-25 14:50 | DRG 184 ==
LOC: ED 19:02 → MED 10-21 05:20 → OBSVTOIN 10-21 15:01
PROVIDERS: ADMIT Hospitalist; ATTEND Hospitalist
DX: S22.42XA Multiple fractures of ribs, left side, initial encounter for closed fracture (principal); F10.239 Alcohol dependence with withdrawal, unspecified; N17.9 Acute kidney failure, unspecified; K22.10 Ulcer of esophagus without bleeding; E11.9 Type 2 diabetes mellitus without complications; E04.1 Nontoxic single thyroid nodule; Y90.9 Presence of alcohol in blood, level not specified; I10 Essential (primary) hypertension; K21.9 Gastro-esophageal reflux disease without esophagitis; G89.29 Other chronic pain; M81.0 Age-related osteoporosis without current pathological fracture; G47.00 Insomnia, unspecified; R00.0 Tachycardia, unspecified; M50.31 Other cervical disc degeneration, high cervical region; S02.2XXA Fracture of nasal bones, initial encounter for closed fracture; W06.XXXA Fall from bed, initial encounter; F41.9 Anxiety disorder, unspecified; M19.90 Unspecified osteoarthritis, unspecified site; M54.9 Dorsalgia, unspecified; Z88.0 Allergy status to penicillin; Z88.8 Allergy status to other drugs, medicaments and biological substances; Z90.49 Acquired absence of other specified parts of digestive tract; Z88.1 Allergy status to other antibiotic agents; Z90.710 Acquired absence of both cervix and uterus; Z98.1 Arthrodesis status; Z86.711 Personal history of pulmonary embolism; Z95.0 Presence of cardiac pacemaker; Y92.091 Bathroom in other non-institutional residence as the place of occurrence of the external cause; Z98.42 Cataract extraction status, left eye; Z82.49 Family history of ischemic heart disease and other diseases of the circulatory system; E87.6 Hypokalemia; E83.42 Hypomagnesemia
CPT/HCPCS: 36415; 70450; 70486; 71260; 72125; 74177; 80048; 80053; 80307; 80320; 80329; 81003; 83036; 83735; 84443; 84484; 85025; 85610; 85730; 93005; 94760; A9270-GY; G0480; J1644; J2060; J2405; J3411; J3475; J3490; Q9967

== ENCOUNTER 2017-12-26 03:34 | Emergency (ER) | payer MEDICARE ==
[2017-12-26] MEDS ORDERED: Al Hydrox/Mg Hydrox/Simet LIQ* 30 ML UDC PO ONE (03:58)
[2017-12-26] MEDS ORDERED: Labetalol IV* 5 MG/ML 20 ML VIAL IV PUSH ONE (03:59)
[2017-12-26] MEDS ORDERED: Lidocaine 2% VISCOUS* 15 ML UDC PO ONE (03:59)
[2017-12-26] MEDS ORDERED: Ondansetron INJ* 2 MG/ML VIAL IV ONE (04:00)
[2017-12-26] MEDS ORDERED: Morphine INJ* 2 MG/ML 1 ML CARPUJECT IV ONE (04:00)
[2017-12-26 04:13] LABS: ABS Basophils 0.1 10^3/ul (0-0.2); ABS Eosinophils 0.2 10^3/ul (0-0.6); ABS Lymphocytes 1.4 10^3/ul (1.0-4.8); ABS Neutrophils 8.5 10^3/ul (1.5-7.7); ABS Nucleated RBC 0 10^3/ul; Hematocrit 37 % (35-47); Hemoglobin 12.2 g/dl (12.0-16.0); Lymphocyte % 12.5 % (25-47); Mean Corpuscular HGB Conc 33 g/dl (31-36); Mean Corpuscular Hemoglobin 28 pg (27-31); Mean Corpuscular Volume 87 fL (80-97); Mean Platelet Volume 9 um3 (7.4-10.4); Nucleated Red Blood Cells % 0; Platelet Count 322 10^3/ul (150-450); Red Cell Distribution Width 16 % (10.5-15); White Blood Count 11.1 10^3/ul (3.5-10.8)
[2017-12-26 04:22] LABS: INR 0.88 (0.77-1.02)
[2017-12-26] MEDS ORDERED: hydrALAZINE IV* 20 MG/ML VIAL IV SLOW PU ONE (04:22)
[2017-12-26 04:37] LABS: Urine Appearance Clear; Urine Blood Negative (Negative); Urine Color Straw; Urine Ketones Negative (Negative); Urine Protein 1+(30 mg/dL) (Negative); Urine Urobilinogen Negative (Negative)
[2017-12-26 04:46] LABS: EGFR Non-African American 37.1 (>60)
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
[2017-12-26 05:48] VITALS: BP 151/82
--- NOTE | 2017-12-26 08:21 | RAD ---
HISTORY: Chest pain COMPARISONS: August 14, 2016 VIEWS: 1: frontal portable view of the chest at 4:26 AM FINDINGS: LINES AND TUBES: A right-sided pacemaker is noted. CARDIOMEDIASTINAL SILHOUETTE: The cardiomediastinal silhouette is normal for portable technique. PLEURA: There is persistent elevation of the right hemidiaphragm. LUNG PARENCHYMA: The lungs are clear. ABDOMEN: There is large rosa hernia. BONES AND SOFT TISSUES: There is postsurgical change to the spine. IMPRESSION: NO ACTIVE CARDIOPULMONARY DISEASE. PERSISTENT ELEVATION OF THE RIGHT HEMIDIAPHRAGM
== END 2017-12-26 05:48 | disposition home or self-care (01) ==
LOC: ED 03:34
DX: R07.89 Other chest pain (principal); F41.9 Anxiety disorder, unspecified; N39.0 Urinary tract infection, site not specified; Z88.3 Allergy status to other anti-infective agents; Z88.0 Allergy status to penicillin; Z88.8 Allergy status to other drugs, medicaments and biological substances
CPT/HCPCS: 36415; 71045; 80053; 81003; 81015; 83605; 83735; 84443; 84484; 85025; 85610; 85730; 87077; 87086; 93005; 96374; 96375; 99284; A9270-GY; J0360; J2270; J2405

== ENCOUNTER 2018-01-12 15:31 | Emergency (ER) | payer MEDICARE ==
[2018-01-12] MEDS ORDERED: NS 0.9% 1000 ML* 1,000 ML IV ONE (16:42)
[2018-01-12] MEDS ORDERED: Morphine INJ* 4 MG/ML 1 ML SYRINGE (NEW SYRINGE VERSION) IV ONE ×2 (16:44→16:45)
[2018-01-12] MEDS ORDERED: Ondansetron INJ* 2 MG/ML VIAL IV ONE (16:45)
[2018-01-12 17:35] LABS: ABS Basophils 0.1 10^3/ul (0-0.2); ABS Eosinophils 0 10^3/ul (0-0.6); ABS Lymphocytes 1.2 10^3/ul (1.0-4.8); ABS Monocytes 0.9 10^3/ul (0-0.8); ABS Nucleated RBC 0 10^3/ul; Eosinophil % 0.1 % (0-6); Hematocrit 41 % (35-47); Hemoglobin 13.4 g/dl (12.0-16.0); Lymphocyte % 7.1 % (25-47); Mean Corpuscular HGB Conc 33 g/dl (31-36); Mean Corpuscular Hemoglobin 27 pg (27-31); Mean Corpuscular Volume 83 fL (80-97); Mean Platelet Volume 9 um3 (7.4-10.4); Nucleated Red Blood Cells % 0.1; Platelet Count 350 10^3/ul (150-450); Red Blood Count 4.92 10^6/ul (4.0-5.4); Red Cell Distribution Width 16 % (10.5-15); White Blood Count 16.3 10^3/ul (3.5-10.8)
[2018-01-12 17:46] LABS: EGFR Non-African American 49.1 (>60); INR 0.97 (0.77-1.02)
[2018-01-12] MEDS ORDERED: Iodixanol* (CONTRAST) 320 MG/ML 100 ML SDV IV ONE (17:50)
--- NOTE | 2018-01-12 18:45 | RAD ---
CLINICAL HISTORY: Epigastric and left abdominal pain. Relevant surgical history includes hysterectomy, cholecystectomy and appendectomy. COMPARISON: CT abdomen pelvis July 24, 2013 TECHNIQUE: Contrast enhanced CT examination of the abdomen and pelvis from the lung bases through the initial tuberosities. The patient received 71 mL Visipaque 320 intravenously prior to imaging.The patient received oral contrast as well prior to imaging. FINDINGS: VISUALIZED LUNG BASES: The visualized lung bases are grossly clear. There is no pleural effusion. Cardiac pacemaker wires are noted. There is asymmetric elevation of the right hemidiaphragm similar in appearance to the previous CT examination. ABDOMEN AND PELVIS: There is a large hiatal hernia similar in appearance to the previous CT examination. There is surgical material along the right lobe of the liver. The liver is other lind homogenous in attenuation. The spleen, pancreas and adrenal glands are grossly normal in appearance. The gallbladder is normal. There is a fluid density cyst at the upper pole the left kidney. Otherwise the kidneys are normal in appearance without focal mass, calcification or signs of hydronephrosis. The oral contrast has progressed as far as the proximal small bowel. 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 The majority of the small bowel is located in the right abdomen. The bowel is not pathologically dilated. There is no definite wall thickening. There is no free air in the peritoneum to indicate macro perforation. There is no gross retroperitoneal or mesenteric lymphadenopathy. The uterus is surgically absent. The coarsely calcified abdominal aorta and iliac arteries are normal in course and diameter. The patient is status post surgical fusion of T10-L1. There is exaggeration of both the thoracic and lumbar curvature of the spine in the sagittal plane as well as levoconvex curvature of the lower thoracic and lumbar spine. There is loss of intervertebral disc height as well as grade 1 anterolisthesis of L4 over L5. IMPRESSION: 1. Extensive chronic, degenerative and postsurgical changes as described in the body the report. 2. There is a large to moderate size hiatal hernia similar to the 2013 CT examination. 3. 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 This is a chronic finding and there are no acute GI findings including signs of obstruction or acute wall thickening.
[2018-01-12 18:49] LABS: Urine Appearance Clear; Urine Blood Negative (Negative); Urine Color Straw; Urine Ketones Negative (Negative); Urine Protein 2+(100 mg/dL) (Negative); Urine Urobilinogen Negative (Negative)
[2018-01-12] MEDS ORDERED: Fluconazole 100 MG TAB* TAB PO ONE (19:25)
[2018-01-12] MEDS ORDERED: HYDROmorphone INJ* 1 MG/ML CARPUJECT SYRINGE IV ONE (19:27)
[2018-01-12] MEDS ORDERED: Sulfamethox/Trimethoprim DS 800/160* TAB PO ONE (19:28)
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
[2018-01-12 20:07] VITALS: BP 121/75
== END 2018-01-12 20:05 | disposition home or self-care (01) ==
LOC: ED 15:31
DX: F41.9 Anxiety disorder, unspecified (principal); R10.9 Unspecified abdominal pain; R30.0 Dysuria
CPT/HCPCS: 36415; 74177; 80053; 81003; 81015; 83605; 83690; 85025; 85610; 85730; 86140; 87086; 96374; 96375; 99284; A9270-GY; J1170; J2270; J2405; Q9967

== ENCOUNTER 2018-04-02 16:53 | Observation (INO) | payer MEDICARE ==
--- NOTE | 2018-04-02 18:34 | RAD ---
Indication: Chest pain. Single frontal view of the chest performed at 1800 hours was reviewed. Comparison is made with previous exam dated December 26, 2017. No mediastinal shift is noted. Heart is of normal size and configuration. Lung li appear clear. There is elevated right hemidiaphragm. Pacemaker leads are in place. IMPRESSION: NO ACTIVE CARDIOPULMONARY DISEASE IS NOTED.
[2018-04-02 18:36] LABS: ABS Basophils 0.1 10^3/ul (0-0.2); ABS Eosinophils 0.1 10^3/ul (0-0.6); ABS Lymphocytes 1.6 10^3/ul (1.0-4.8); ABS Monocytes 0.8 10^3/ul (0-0.8); ABS Neutrophils 8.5 10^3/ul (1.5-7.7); ABS Nucleated RBC 0 10^3/ul; Eosinophil % 1.3 % (0-6); Hematocrit 34 % (35-47); Hemoglobin 10.8 g/dl (12.0-16.0); Lymphocyte % 14.7 % (25-47); Mean Corpuscular HGB Conc 32 g/dl (31-36); Mean Corpuscular Hemoglobin 24 pg (27-31); Mean Corpuscular Volume 75 fL (80-97); Mean Platelet Volume 8.2 um3 (7.4-10.4); Nucleated Red Blood Cells % 0; Platelet Count 324 10^3/ul (150-450); Red Blood Count 4.49 10^6/ul (4.0-5.4); Red Cell Distribution Width 16 % (10.5-15); White Blood Count 11.1 10^3/ul (3.5-10.8)
[2018-04-02] MEDS ORDERED: Nitroglycerin TAB 0.4 MG* 0.4 MG TAB SL ONE (18:48)
[2018-04-02] MEDS ORDERED: Aspirin 81 mg CHEW TAB* 81 MG TAB.CHEW PO ONE (18:49)
[2018-04-02] MEDS ORDERED: oxyCODONE/Acetamin 5/325 MG* TAB PO ONE (18:50)
[2018-04-02] MEDS ORDERED: Iodixanol* (CONTRAST) 320 MG/ML 100 ML SDV IV ONE (19:06)
--- NOTE | 2018-04-02 19:58 | RAD ---
Indication: Chest pain, back pain. Contrast: Administered 80.2 ml of VISAPAQUE 320 mg/ml CTA of the chest was performed after IV contrast administration. CTA of the abdominal aorta and pelvic vessels were also obtained. There is no evidence of aortic dissection. No aneurysmal dilatation is noted. The origins of the great vessels are unremarkable. Atherosclerotic aorta is noted. Celiac axis superior mesenteric artery and renal arteries are all patent. The pulmonary arteries are well opacified. No filling defects are noted to suggest pulmonary embolus. Inferior thyroid lobes demonstrates low density lesion in the lower pole of the left lobe. There is no mediastinal or hilar adenopathy noted. Heart demonstrates no pericardial effusion. There is an elevated right hemidiaphragm with right basilar atelectasis. The lung li demonstrate no evidence of alveolar consolidation. Left lung field demonstrates some atelectasis. No pleural fluid is identified. There is a large hiatal hernia noted. The liver demonstrates no focal lesions. Patient is status post cholecystectomy. The pancreas demonstrates no mass or pancreatic duct dilatation. Common duct is not dilated. Spleen is normal in size. No dilated loops of bowel are noted. No adrenal masses are noted. The kidneys demonstrate symmetric nephrograms with several cortical cysts no hydronephrosis. The retroperitoneal lymphadenopathy is noted. No dilated loops of bowel are noted. The bony structures demonstrates fusion of L1-T12. A bone graft is in place. Grade 1 spondylolisthesis of L4 on 5 is noted. IMPRESSION: There is no evidence of aortic dissection or a residual dilatation of the aorta. There is a large hiatal hernia noted. There is an elevated right hemidiaphragm. Patient is status post cholecystectomy. Multilevel degenerative disc disease with chronic compression fractures of the thoracic and lumbar spine.
[2018-04-02] MEDS ORDERED: Zolpidem TAB* 10 MG PO PRN (21:43)
[2018-04-02] MEDS ORDERED: Lidocaine 2% VISCOUS* 15 ML UDC PO ONE (21:43)
[2018-04-02] MEDS ORDERED: Dextrose 50% Syringe 50 ML* 25 GM/50 ML SYRINGE IV PUSH PRN (21:43)
[2018-04-02] MEDS ORDERED: Al Hydrox/Mg Hydrox/Simet LIQ* 30 ML UDC PO ONE (21:43)
[2018-04-02] MEDS ORDERED: Senna TAB PO PRN (21:46)
[2018-04-02] MEDS ORDERED: traMADol TAB* 50 MG PO PRN (21:46)
[2018-04-02] MEDS ORDERED: hydrALAZINE IV* 20 MG/ML VIAL IV SLOW PU PRN (21:53)
[2018-04-02] MEDS ORDERED: Pantoprazole IV* 40 MG IV SCH (22:00)
[2018-04-02 22:25] LABS: Urine Appearance Clear; Urine Blood Negative (Negative); Urine Color Straw; Urine Ketones Negative (Negative); Urine Protein 2+(100 mg/dL) (Negative); Urine Urobilinogen Negative (Negative)
[2018-04-02 22:33] LABS: INR 1.02 (0.77-1.02)
--- NOTE | 2018-04-02 23:26 | ED ---
Neo Oconnell Rebecca, scribed for Raimundo Boyer MD on 04/02/18 at 2127 . Progress - Progress Note Progress Note: Pt was signed out by Dr. Montoya, pending dispo, awaiting CTA Chest. - Results/Orders Results/Orders: CTA Chest/Abd/Pel: Read by radiologist: There is no evidence of aortic dissection or a residual dilatation of the aorta. There is a large hiatal hernia noted. There is an elevated right hemidiaphragm. Patient is status post cholecystectomy. Multilevel degenerative disc disease with chronic compression fractures of the thoracic and lumbar spine. ED physician reviewed this radiology report. Course/Dx - Course Course Of Treatment: Pt was signed out by Dr. Montoya, pending dispo, awaiting CTA Chest. CTA Chest/Abd/pel findings above. Discussed care of pt with Javier Rodriguez who accepts pt for admission. Pt will be admitted with Dx of chest pain. She understands and agrees. Allergies noted. - Diagnoses Provider Diagnoses: Chest pain - Provider Notifications Discussed Care Of Patient With: Cristhian Rodriguez Time Discussed With Above Provider: 21:20 Instructed by Provider To: Other - Accepts pt for admission Discharge - Sign-Out/Discharge Documenting (check all that apply): Discharge/Admit/Transfer - Admit, Receiving Sign-Out Receiving patient FROM: Jose Luis Montoya - Discharge Plan Condition: Stable Disposition: ADMITTED TO [facility] Referrals: Rosa Tran MD [Primary Care Provider] - The documentation as recorded by the Neo black Rebecca accurately reflects the service I personally performed and the decisions made by , Raimundo Boyer MD.
[2018-04-02] MEDS: Sucralfate TAB* 1 GM PO SCH (23:34)
[2018-04-02] MEDS: oxyCODONE TAB* 5 MG TAB PO PRN (23:34)
[2018-04-02] MEDS: Heparin VIAL(*) 5000 UNITS/ML VIAL (FIVE THOUSAND) SUBCUT SCH (23:35)
--- NOTE | 2018-04-03 04:27 | HP ---
CC: Dr. Tran * HISTORY AND PHYSICAL: DATE OF ADMISSION: 04/02/18 PRIMARY CARE PROVIDER: Rosa Tran MD ATTENDING PHYSICIAN WHILE IN HOSPITAL: Haider Boyer MD * (report dictated by Cristhian Rodriguez NP). CHIEF COMPLAINT: Chest pain. HISTORY OF PRESENT ILLNESS: Mrs. Johnson is a 73-year-old female patient. She carries a history of diabetes, newly diagnosed; history of PE; hypertension; GERD and esophagitis; chronic pain; osteoporosis; and history of insomnia. She came in to the ED today stating that since this morning after eating, she has noticed that she has had burning in the epigastric and chest area which has been persistent throughout the day. She says that she has had episodes of this intermittently. She actually bought some Tums and was taking them as needed and it was helping a little bit, but [facility] staff said that she was not allowed to take these without an order. She says that she has felt short of breath with this and has felt nauseated with it, but she has never gotten sweaty. She was concerned today though because the pain just was not getting any better. She has chronic pain meds that she normally takes, but she was unable to get these because her prescription according to the patient had ran out. She says that she does at times when she is exerting herself with PT, she will get this burning chest discomfort as well. She says that it does not go under the jaw, it does not go down her arm and she does not describe it as a pressure, but she does state that she has been feeling short of breath with exertion. She says that she has not noticed any swelling of her legs, only when her legs are dangling down with gravity. She denied having any fevers. There has been no coughing. She said that she did have again some of this burning and discomfort with exertion. She came in to the ED today because her symptoms just were not getting controlled at [facility]. She requested to be evaluated here. Because of her history of diabetes and hypertension, there was concern that this chest burning discomfort may be cardiac related. We were asked to evaluate for admission. She denies any abdominal pain. She did admit to having some dysuria and some frequency at times. No flank pain and no lower abdominal pain. She says she just feels some pressure in her pelvic area and she said she has been having trouble with UTIs, but there has been no fevers or again no flank pain. PAST MEDICAL HISTORY: Significant for: 1. Diabetes. 2. History of PE. 3. Hypertension. 4. GERD. 5. Chronic pain. 6. Osteoporosis. 7. Insomnia. PAST SURGICAL HISTORY: 1. She has had a pacemaker placement. 2. Cholecystectomy. 3. Appendectomy. 4. Hysterectomy. 5. T11 to L1 fusion. HOME MEDICATIONS: According to list we were able to obtain include: 1. Diltiazem 240 mg p.o. daily. 2. Folic acid 1 tablet daily. 3. Omeprazole 20 mg p.o. daily. 4. Paxil 10 mg p.o. daily. 5. Thiamin 100 mg p.o. daily. 6. Ambien 10 mg at bedtime as needed for sleep. 7. Metformin 500 mg twice a day. 8. Tylenol 650 mg every 6 hours as needed for fever and pain. 9. Zofran 4 mg every 8 hours as needed for nausea. 10. Oxycodone 5 mg every 6 hours as needed for pain. ALLERGIES TO MEDICATIONS: Include PENICILLIN, KEFLEX, TRAZODONE and BETA- JASMYN. FAMILY HISTORY: Mother had a history of CVA. Father had a history of cancer and stroke. SOCIAL HISTORY: She does not smoke. She used to be a heavy drinker. She does not drink anymore. Surrogate decision makers are her and her son. REVIEW OF SYSTEMS: There is no documented fever. She denied any significant weight change. There is no double vision. There was no ear discharge. She denied having any rhinorrhea. No sore throat. No thyroid enlargement. She did admit to having chest discomfort per my HPI. There is dyspnea with exertion. There is no orthopnea. No nocturnal dyspnea. There is no abdominal pain. There is no nausea. There was no vomiting. There was epigastric discomfort. No abdominal pain. There was some dysuria and frequency. No seizure, no loss of consciousness. No pruritus and no skin ulcerations. Review of 14 systems completed, all others negative. PHYSICAL EXAMINATION GENERAL: At this time, Mrs. Johnson is a 73-year-old female patient. She is sitting in the ED stretcher. She does not appear to be in any acute distress. She appears to be well nourished and well developed. VITAL SIGNS: Blood pressure 160/109, pulse was 96, respirations 15, O2 sat 94% , temperature 98.8. HEENT: Head: Atraumatic, normocephalic. Eyes: EOMs are intact. Sclerae anicteric and not pale. Throat: Oral mucosa appears to be moist. No oropharyngeal erythema. NECK: Supple. LUNGS: Clear to auscultation bilaterally. No wheezes, rales, or rhonchi. HEART: Sounds S1, S2. There is regular rate and rhythm. No murmurs, rubs, or gallops. ABDOMEN: Soft, flat, nontender. Bowel sounds are present. No CVA tenderness. EXTREMITIES: Pulses were 2+ throughout. The patient is moving all 4 extremities with 5/5 strength. NEUROLOGIC: She is awake. She is alert. She is oriented x3. Tongue midline. Wastewater Project Engineer are equal. She had no gross focal deficits. SKIN: Grossly intact. DIAGNOSTIC STUDIES/LAB DATA: Labs: WBC 11.1, RBC of 4.49, hemoglobin 10.8, hematocrit of 34, platelet count of 324. Sodium was 134, potassium was 4.0, chloride of 96, bicarb 29, BUN 23, creatinine 1.22, glucose 175, lactate 1.6, calcium 10.9. Total bili 0.4, AST 17, ALT 10, alk phos 67. Troponin 0. Albumin of 3.8. She did have multiple imaging in the ED. She had CTA chest, impression: No evidence of aortic dissection or residual dilatation of the aorta. Large hiatal hernia noted. She has an elevated right hemidiaphragm. She is status post cholecystectomy, multiple level degenerative disk disease and compression fracture of the thoracic and lumbar spine. There was no filling defect to suggest PE. She had a chest x-ray obtained today, showed no active cardiopulmonary disease. There was an EKG obtained, which shows a normal sinus rhythm, rate of 94. She had no ST elevations or T-wave inversions. I reviewed to the previous EKG. It appeared to be similar. The heart rate is now slower. Old medical records were reviewed. ASSESSMENT AND PLAN: Mrs. Johnson is a 73-year-old female patient coming in to the emergency department with complaints of epigastric discomfort and chest discomfort described as a burning. In addition to this, did report that she had episodes of discomfort with exertion in the chest. We were asked to evaluate for admission. She will be admitted under observation status for: 1. Chest pain. This is atypical pain. I suspect this is probably related to esophagitis. She has known history of this. She said she was scoped here previously and found to have this. She was scoped here 2 years ago. The patient says the pain feels similar to this, although I do get concerned with the exertional chest discomfort and the fact that she is diabetic and history of hypertension, so I think, I am going to go ahead and give her an IV PPI for the time being. We may need to consider increasing this to b.i.d. I will put her on Carafate and give her a GI cocktail. In addition to this, trend her troponin, check an EKG and order a stress test tomorrow. If the pain persists, we may need to consider getting GI involved to possibly repeat the scope, but there is no evidence of emergent scope needed at this point as there has been no reports coffee ground emesis and no reports of melena, but we will monitor for any changing symptoms. 2. Diabetes. I have ordered lispro sliding scale. 3. History of pulmonary embolism. I have ordered heparin subcu for prevention. Not an active issue currently. CTA negative. 4. Hypertension. Blood pressure is not that well controlled currently, may be secondary to pain, but I will go ahead and order a p.r.n. hydralazine. I particularly want to get her diastolics to less than 100. 5. Gastroesophageal reflux disease. With history of esophagitis, again I am going to put her on Carafate and PPI. 6. Chronic pain. Continue meds as prescribed. 7. Osteoporosis. Follow with primary. 8. Insomnia. I have ordered p.r.n. Ambien. 9. Code status. Full code. 10. Fluids, electrolytes, and nutrition. She can have a heart-healthy diet and then n.p.o. after midnight. TIME SPENT: Time spent on the admission 60 minutes, greater than half the time spent [id number] with the patient obtaining my history and physical, other half time spent going over the plan of care with the patient and implementing plan of care. I did discuss the plan of care with my attending, Dr. Boyer; he is in agreement. CRISTHIAN RODRIGUEZ, RACK LOADER [id number]/[facility] #: [id number] ALEXANDRA
[2018-04-03] MEDS: Heparin VIAL(*) 5000 UNITS/ML VIAL (FIVE THOUSAND) SUBCUT SCH ×2 (05:26→13:38)
[2018-04-03 05:44] LABS: ABS Basophils 0.1 10^3/ul (0-0.2); ABS Eosinophils 0.4 10^3/ul (0-0.6); ABS Lymphocytes 2.9 10^3/ul (1.0-4.8); ABS Monocytes 0.9 10^3/ul (0-0.8); ABS Nucleated RBC 0 10^3/ul; Eosinophil % 3.8 % (0-6); Hematocrit 30 % (35-47); Hemoglobin 9.9 g/dl (12.0-16.0); Lymphocyte % 28.2 % (25-47); Mean Corpuscular HGB Conc 34 g/dl (31-36); Mean Corpuscular Hemoglobin 25 pg (27-31); Mean Corpuscular Volume 75 fL (80-97); Mean Platelet Volume 8.3 um3 (7.4-10.4); Nucleated Red Blood Cells % 0; Platelet Count 298 10^3/ul (150-450); Red Blood Count 3.95 10^6/ul (4.0-5.4); Red Cell Distribution Width 16 % (10.5-15); White Blood Count 10.2 10^3/ul (3.5-10.8)
[2018-04-03] MEDS: oxyCODONE TAB* 5 MG TAB PO PRN ×2 (05:56→12:09)
[2018-04-03] MEDS: Insulin LISPRO* 1 UNITS UNIT SUBCUT SCH ×2 (07:22→12:09)
[2018-04-03] MEDS ORDERED: PARoxetine HCL TAB* 10 MG PO SCH (09:00)
[2018-04-03] MEDS ORDERED: Thiamine TAB* 100 MG TAB PO SCH (09:00)
[2018-04-03] MEDS ORDERED: Folic Acid TAB* 1 MG PO SCH (09:00)
[2018-04-03] MEDS ORDERED: Diltiazem CD CAP* 240 MG PO SCH (09:00)
[2018-04-03] MEDS ORDERED: Regadenoson* 0.4 MG/5 ML SYRINGE ONE (09:04)
[2018-04-03] MEDS ORDERED: Aminophylline IV* 25 MG/ML 10 ML VIAL ONE (09:05)
--- NOTE | 2018-04-03 10:48 | RAD ---
Edited for charges. INDICATION: Chest pain. COMPARISON: There are no prior studies available for comparison. Technique: A single day myocardial perfusion stress study was performed. Initially the resting study was performed. The patient was given an intravenous injection of 10.0 mCi of technetium 99m tetrofosmin and and the heart was imaged in multiple projections. The patient returned later in the day and under the direction of Dr. Lopes, the patient was given intervenous injection of Lexiscan. Subsequently the patient was given intravenous injection of 25.8 mCi of technetium 99m tetrofosmin and the heart was imaged in multiple projections. Images were reconstructed in the axial, sagittal and coronal planes and in a 3- D format. FINDINGS: There appears to be normal wall motion and myocardial thickening. The left ventricular ejection fraction was calculated to be 83%. Review of the images demonstrates normal distribution of radiopharmaceutical. No significant perfusion defects are seen. IMPRESSION: NO EVIDENCE FOR INFARCT OR ISCHEMIA. ASSESSMENT: Low risk. Based on imaging criteria from ACC/AHA 2002 Guideline Update for the Management of Patients With Chronic Stable Angina Table 23. Noninvasive Risk Stratification. MTDD
[2018-04-03 11:36] VITALS: BP 122/76
[2018-04-03] MEDS: Sucralfate TAB* 1 GM PO SCH ×2 (12:09→14:08)
--- NOTE | 2018-04-04 11:30 | DS ---
CC: Dr. Rosa Tran * DISCHARGE SUMMARY: DATE OF ADMISSION: 04/02/18 DATE OF DISCHARGE: 04/03/18 ATTENDING PHYSICIAN: Dr. Cipriano Berkowitz. MY ATTENDING FOR TODAY: Dr. Cipriano Berkowitz.* (DICTATED BY ELEN DRAPER NP) PRIMARY CARE PHYSICIAN: Dr. Rosa Tran. HOSPITAL COURSE: This is a 73-year-old female patient, who presented to the emergency department last night with complaint of a burning sensation in her chest with some nausea and pain in between her shoulder blades. The patient states she has had this feeling before. She did have a history of erosive esophagitis; however, she could not tell whether this was the same pain or not and was concerned that it was cardiac in nature. The patient was admitted for rule out ACS. Her troponins were negative x2. She had no EKG changes. She underwent nuclear stress test this morning, which was low risk. The patient was treated with Protonix and Carafate, for which she had relief of her burning sensation in her chest. As such, the patient was discharged in stable condition with outpatient followup, also told to follow up with her GI doctor to see if her erosive esophagitis is back again. The patient had no changes in her laboratories. The rest of her workup was completely negative. Day of discharge, the patient is denying any chest pain; no shortness of breath, no nausea, no vomiting, no arthralgias or myalgias, and no further constitutional complaints. PHYSICAL EXAM: The patient is alert, in no acute distress. Vital signs are blood pressure 122/76, heart rate 55, respiratory rate 16, O2 saturation 96% on room air with a temperature of 98.2. HEENT: The patient is atraumatic, normocephalic. She is PERRLA with nonicteric sclerae. Neck is supple. No thyromegaly appreciated. No carotid bruit auscultated. She has a positive S1, S2. Rate and rhythm are regular with no murmurs, gallops, or rubs. Abdomen is soft, nontender, and nondistended. Positive bowel sounds in all 4 quadrants. No organomegaly noted. Musculoskeletal: There is no clubbing, no cyanosis, no edema. She has +2 distal pulses palpable. Steady gait. Full range of motion. Neurologic: She is grossly intact with no focal deficits. Psychiatric: She is cooperative and appropriate. LABORATORY DATA: WBC is 10.2, RBC 3.95, hemoglobin 9.9, hematocrit 30, platelets 298. Sodium 134, potassium 4.0, chloride 96, CO2 29, BUN 23, creatinine 1.22, which is at her baseline, glucose 175, calcium 10.9, lactic acid 1.6, hemoglobin A1c 9.2. Total bilirubin 0.40, AST 17, ALT 10, alk phos 67. Troponins were negative at 0.00, 0.01, and 0.01. Total protein 7.5, albumin 3.8, triglycerides 144, cholesterol 138, LDL 72, and HDL is 36.9. DISCHARGE DIAGNOSES: 1. Atypical chest pain, likely esophagitis, low risk for cardiovascular ischemia as per stress test. 2. History of gastroesophageal reflux disease. 3. History of chronic pain. 4. Osteoporosis. 5. History of pulmonary embolism in the past. 6. Newly diagnosed diabetes mellitus. DISCHARGE MEDICATIONS: 1. Diltiazem 240 mg daily. 2. Folic acid 1 tablet daily. 3. Omeprazole 20 mg daily. 4. Paxil 10 mg daily. 5. Thiamine 100 mg daily. 6. Ambien 10 mg as needed for sleep. 7. Metformin 500 mg 2 times a day. 8. Tylenol 650 q. 6 hours as needed. 9. Zofran 4 mg every 8 hours as needed. 10. Oxycodone 5 mg q. 6 hours as needed. 11. Carafate 1 g 3 times a day. 12. Protonix 40 mg daily. DISPOSITION: The patient was discharged in stable condition. All questions were answered. The patient was instructed to follow up with Dr. Tran, her primary care physician in the next 1 to 2 weeks and also follow up with her GI doctor and consider having outpatient endoscopy. The patient understands that her 2 new medications of Protonix and Carafate have been sent to her pharmacy. She should stay on these for 2 weeks and then follow up closely as an outpatient again with her primary and with GI. The patient was discharged in stable condition. She did have an appointment today with [facility] this afternoon, which she is keeping and she will follow up again with the primary and GI as needed. ELEN DRAPER, ASSEMBLY AND PACKING SUPERVISOR [id number]/[facility] #: [id number] [facility]ITAL[facility]
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
== END 2018-04-03 14:05 | disposition home or self-care (01) ==
LOC: ED 16:53 → MEDTELE 21:39
PROVIDERS: ADMIT Student in an Organized Health Care Education/Training Program; ATTEND Student in an Organized Health Care Education/Training Program
DX: R07.89 Other chest pain (principal); K21.9 Gastro-esophageal reflux disease without esophagitis; G89.29 Other chronic pain; M81.0 Age-related osteoporosis without current pathological fracture; Z86.711 Personal history of pulmonary embolism; E11.9 Type 2 diabetes mellitus without complications; Z79.84 Long term (current) use of oral hypoglycemic drugs; Z79.899 Other long term (current) drug therapy; Z88.0 Allergy status to penicillin; Z88.1 Allergy status to other antibiotic agents; Z88.8 Allergy status to other drugs, medicaments and biological substances; Z82.3 Family history of stroke; R00.0 Tachycardia, unspecified
CPT/HCPCS: 36415; 71045; 71275; 74174; 78452; 80053; 80061; 81003; 81015; 83036; 83605; 84484; 85025; 85610; 87077; 87086; 87186; 87641; 93005; 93017; 99285; A9270-GY; A9502; G0378; J0280; J1644; J2785; Q9967

== ENCOUNTER 2018-04-17 03:23 | Emergency (ER) | payer MEDICARE ==
[2018-04-17] MEDS ORDERED: HYDROmorphone INJ* 2 MG/ML CARPUJECT SYRINGE IV SLOW PU ONE ×2 (03:38→05:18)
[2018-04-17] MEDS ORDERED: Lidocaine 2% VISCOUS* 15 ML UDC PO ONE (03:38)
[2018-04-17] MEDS ORDERED: Al Hydrox/Mg Hydrox/Simet LIQ* 30 ML UDC PO ONE (03:38)
[2018-04-17] MEDS ORDERED: Sucralfate TAB* 1 GM PO ONE (03:38)
[2018-04-17] MEDS ORDERED: Famotidine TAB* 20 MG PO ONE (03:38)
[2018-04-17] MEDS ORDERED: Ondansetron ODT TAB* 4 MG PO ONE (03:39)
[2018-04-17] MEDS ORDERED: Ondansetron ODT TAB* 4 MG ONE (03:56)
[2018-04-17 04:37] LABS: ABS Basophils 0 10^3/ul (0-0.2); ABS Eosinophils 0.4 10^3/ul (0-0.6); ABS Lymphocytes 2.1 10^3/ul (1.0-4.8); ABS Neutrophils 8.7 10^3/ul (1.5-7.7); ABS Nucleated RBC 0 10^3/ul; Eosinophil % 2.9 % (0-6); Hematocrit 33 % (35-47); Hemoglobin 10.6 g/dl (12.0-16.0); Lymphocyte % 16.9 % (25-47); Mean Corpuscular HGB Conc 32 g/dl (31-36); Mean Corpuscular Hemoglobin 24 pg (27-31); Mean Corpuscular Volume 76 fL (80-97); Nucleated Red Blood Cells % 0; Platelet Count 342 10^3/ul (150-450); Red Blood Count 4.37 10^6/ul (4.00-5.40); Red Cell Distribution Width 17 % (10.5-15); White Blood Count 12.2 10^3/ul (3.5-10.8)
[2018-04-17 04:53] LABS: EGFR Non-African American 35.5 (>60)
[2018-04-17 05:40] VITALS: BP 135/90
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
--- NOTE | 2018-04-17 08:32 | RAD ---
INDICATION: Chest and back pain. COMPARISON: April 02, 2018 CT. TECHNIQUE: Dual energy PA and routine lateral views of the chest were obtained. REPORT: Chronic moderately severe elevation of the RIGHT hemidiaphragm with proportional loss of volume of the RIGHT lung. Moderately large retrocardiac hiatal hernia with associated medial LEFT basilar atelectasis. No alveolar consolidation concerning for pneumonia. Negative for pleural effusion or pneumothorax. Negative for cardiomegaly. RIGHT atrial and RIGHT ventricular level pacemaker leads. Unremarkable central pulmonary vasculature. Anterior cervical fusion hardware and hardware reflecting previous RIGHT rotator cuff repair. Gallbladder fossa level surgical clips. Hardware reflecting previous lumbar spine fusion. IMPRESSION: 1. Chronic elevation of the RIGHT hemidiaphragm and moderately large hiatal hernia with associated atelectasis. 2. No evidence for acute intrathoracic disease.
== END 2018-04-17 06:41 | disposition home or self-care (01) ==
LOC: ED 03:23
DX: G89.4 Chronic pain syndrome (principal); K21.9 Gastro-esophageal reflux disease without esophagitis; K44.9 Diaphragmatic hernia without obstruction or gangrene; I10 Essential (primary) hypertension; R00.0 Tachycardia, unspecified; E11.9 Type 2 diabetes mellitus without complications; E04.1 Nontoxic single thyroid nodule; Z95.810 Presence of automatic (implantable) cardiac defibrillator; Z86.711 Personal history of pulmonary embolism; F41.9 Anxiety disorder, unspecified; F32.9 Major depressive disorder, single episode, unspecified; Z90.710 Acquired absence of both cervix and uterus; Z90.49 Acquired absence of other specified parts of digestive tract; Z88.1 Allergy status to other antibiotic agents; Z88.0 Allergy status to penicillin; Z88.8 Allergy status to other drugs, medicaments and biological substances; Z82.49 Family history of ischemic heart disease and other diseases of the circulatory system
CPT/HCPCS: 36415; 71046; 80053; 83690; 84484; 85025; 93005; 96374; 96376; 99284; A9270-GY; J1170

== ENCOUNTER 2018-04-25 04:45 | Emergency (ER) | payer MEDICARE ==
[2018-04-25] MEDS ORDERED: HYDROmorphone INJ* 2 MG/ML CARPUJECT SYRINGE IV SLOW PU ONE (04:51)
[2018-04-25] MEDS ORDERED: Sucralfate TAB* 1 GM PO ONE (04:56)
[2018-04-25] MEDS ORDERED: Pantoprazole IV* 40 MG IV ONE (04:56)
[2018-04-25] MEDS ORDERED: Metoprolol Tartrate IV* 1 MG/ML 5 ML VIAL IV ONE (04:56)
[2018-04-25] MEDS ORDERED: Famotidine IV* 10 MG/ML 2 ML (20 mg) IV SLOW PU ONE (04:56)
[2018-04-25] MEDS ORDERED: Lidocaine 2% VISCOUS* 15 ML UDC PO ONE (05:43)
[2018-04-25] MEDS ORDERED: Al Hydrox/Mg Hydrox/Simet LIQ* 30 ML UDC PO ONE (05:43)
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
[2018-04-25 06:50] VITALS: BP 225/123
== END 2018-04-25 07:02 | disposition home or self-care (01) ==
LOC: ED 04:45
DX: K44.9 Diaphragmatic hernia without obstruction or gangrene (principal); K20.9 Esophagitis, unspecified; R07.9 Chest pain, unspecified; G89.29 Other chronic pain; R00.0 Tachycardia, unspecified; I10 Essential (primary) hypertension; K21.9 Gastro-esophageal reflux disease without esophagitis; Z95.0 Presence of cardiac pacemaker; Z79.899 Other long term (current) drug therapy; Z86.711 Personal history of pulmonary embolism; Z87.440 Personal history of urinary (tract) infections; F41.9 Anxiety disorder, unspecified; Z88.0 Allergy status to penicillin; Z88.3 Allergy status to other anti-infective agents
CPT/HCPCS: 93005; 96374; 96375; 99283; A9270-GY; J1170; J3490

== ENCOUNTER → 2018-06-30 03:12 | Emergency (ER) | payer MEDICARE ==
[~2018-06-30 03:12] MED LIST changes: -Acetaminophen TAB* 325 MG PO ONE; +Al Hydrox/Mg Hydrox/Simet LIQ* 30 ML UDC PO ONE; -Ibuprofen TAB* 400 MG ONE; -Ibuprofen TAB* 400 MG PO ONE; +Lidocaine 2% VISCOUS* 15 ML UDC PO ONE; +Morphine INJ* 2 MG/ML 1 ML SYRINGE (TWO MG - NEW SYRINGE VERSION) ONE; +Morphine VIAL* 4 MG/ML VIAL (1 ml vial) IV ONE
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
[2018-06-30 04:47] LABS: EGFR Non-African American 41.8 (>60)
[2018-06-30 05:02] LABS: ABS Basophils 0.1 10^3/ul (0-0.2); ABS Eosinophils 0.3 10^3/ul (0-0.6); ABS Lymphocytes 1.7 10^3/ul (1.0-4.8); ABS Monocytes 0.9 10^3/ul (0-0.8); ABS Neutrophils 7.1 10^3/ul (1.5-7.7); ABS Nucleated RBC 0 10^3/ul; Hematocrit 28 % (35-47); Mean Corpuscular HGB Conc 32 g/dl (31-36); Mean Corpuscular Hemoglobin 23 pg (27-31); Mean Corpuscular Volume 72 fL (80-97); Mean Platelet Volume 8.3 um3 (7.4-10.4); Platelet Count 296 10^3/ul (150-450); Red Blood Count 3.97 10^6/ul (4.00-5.40); Red Cell Distribution Width 18 % (10.5-15); White Blood Count 10.1 10^3/ul (3.5-10.8)
[2018-06-30 05:26] LABS: Eosinophil % 3.3 % (0-6); Lymphocyte % 17.1 % (25-47); Nucleated Red Blood Cells % 0
[2018-06-30 08:27] VITALS: BP 159/84
--- NOTE | 2018-06-30 09:25 | RAD ---
INDICATION: Chest pain COMPARISON: Chest x-ray dated April 17, 2018 TECHNIQUE: Single AP portable view of the chest was obtained. FINDINGS: Image quality is compromised due to the relative inferiority of a portable chest x-ray. Postsurgical changes include a right upper chest cardiac pacemaker with 2 leads overlying the heart. There is a plate and screw fixator overlying the midline cervical spine. There is also an implantable device overlying the left lower hemithorax. The heart and mediastinum exhibit normal size and contour. There is elevation of the right hemidiaphragm relative to the left. This is similar to the previous chest x-ray. The lungs otherwise appear adequately aerated. Left costophrenic angle blunting could indicate a small pleural effusion. Visualized bones are normal for the patient's age. IMPRESSION: Persistent elevation of the right hemidiaphragm similar in appearance to the April 17, 2018 chest x-ray. There is a small degree of left costophrenic angle blunting which could indicate a small pleural effusion. R1
== END | disposition home or self-care (01) ==
LOC: ED 03:12
DX: K20.9 Esophagitis, unspecified (principal); R10.9 Unspecified abdominal pain; R07.9 Chest pain, unspecified; E11.9 Type 2 diabetes mellitus without complications; K59.00 Constipation, unspecified; Z88.0 Allergy status to penicillin; I10 Essential (primary) hypertension
CPT/HCPCS: 36415; 71045; 80053; 84484; 85025; 93005; 96374; 96375; 99282; A9270-GY; J2270

== ENCOUNTER 2018-07-14 04:46 | Inpatient (IN) | payer MEDICARE ==
[2018-07-14] MEDS ORDERED: Metoprolol Tartrate TAB* 50 mg PO ONE (04:56)
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
[2018-07-14] MEDS ORDERED: Al Hydrox/Mg Hydrox/Simet LIQ* 30 ML UDC PO ONE (04:59)
[2018-07-14] MEDS ORDERED: Lidocaine 2% VISCOUS* 15 ML UDC PO ONE (04:59)
[2018-07-14] MEDS ORDERED: Morphine VIAL* 4 MG/ML VIAL (1 ml vial) IV ONE (05:00)
[2018-07-14] MEDS ORDERED: Morphine INJ* 2 MG/ML 1 ML SYRINGE (TWO MG - NEW SYRINGE VERSION) ONE (05:03)
[2018-07-14] MEDS ORDERED: Morphine INJ* 2 MG/ML 1 ML SYRINGE (TWO MG - NEW SYRINGE VERSION) IV ONE ×2 (05:07→05:08)
[2018-07-14 06:14] LABS: ABS Basophils 0.1 10^3/ul (0-0.2); ABS Eosinophils 0.4 10^3/ul (0-0.6); ABS Lymphocytes 1.7 10^3/ul (1.0-4.8); ABS Monocytes 0.9 10^3/ul (0-0.8); ABS Neutrophils 9.2 10^3/ul (1.5-7.7); ABS Nucleated RBC 0 10^3/ul; Eosinophil % 3.3 % (0-6); Hematocrit 31 % (35-47); Hemoglobin 9.6 g/dl (12.0-16.0); Lymphocyte % 13.9 % (25-47); Mean Corpuscular HGB Conc 31 g/dl (31-36); Mean Corpuscular Hemoglobin 22 pg (27-31); Mean Corpuscular Volume 70 fL (80-97); Mean Platelet Volume 8.1 um3 (7.4-10.4); Nucleated Red Blood Cells % 0; Platelet Count 305 10^3/ul (150-450); Red Blood Count 4.37 10^6/ul (4.00-5.40); Red Cell Distribution Width 18 % (10.5-15); White Blood Count 12.3 10^3/ul (3.5-10.8)
[2018-07-14 06:29] LABS: EGFR Non-African American 35.5 (>60)
[2018-07-14] MEDS ORDERED: cloNIDine TAB* 0.1 MG PO ONE (07:48)
[2018-07-14] MEDS ORDERED: Morphine INJ** 4 MG/ML 1 ML CARPUJECT IV ONE (07:49)
[2018-07-14 07:55] LABS: Urine Appearance Clear; Urine Blood Negative (Negative); Urine Color Colorless; Urine Ketones Negative (Negative); Urine Protein 1+(30 mg/dL) (Negative); Urine Red Blood Cell Trace(0-2/hpf) (Absent); Urine Specific Gravity 1.005 (1.010-1.030); Urine Urobilinogen Negative (Negative); Urine White Blood Cell 1+(6-10/hpf) (Absent)
[2018-07-14] MEDS ORDERED: hydrALAZINE IV* 20 MG/ML VIAL IV SLOW PU ONE (08:21)
--- NOTE | 2018-07-14 08:25 | ED ---
Progress - Progress Note Progress Note: Pt was signed out from Dr. Coon upon shift change pending stabilization of vitals. This patient is a 73 year old F BIBA to [facility] with a chief complaint of CP that began at 0200 today. The patient rates the pain 5/10 in severity. Symptoms aggravated by nothing. Symptoms alleviated by nothing. Patient reports dysuria and headache. Patient reports she has a history of esophagitis and a recent diagnosis of diabetes. Re-Evaluation - Re-Evaluation First Eval Re-Evaluation Time: 08:23 Change: Unchanged Comment: BP is 233/148 Course/Dx - Course Course Of Treatment: This patient is a 73 year old F BIBA to [facility] with a chief complaint of CP that began at 0200 today. Patient reports she has a history of esophagitis and a recent diagnosis of diabetes. Blood work and UA obtained. In the ED course the patient was given morphine, Lopressor, 2% Lidocaine, Apresoline, Catapres, and Maalox. Consult with Dr. Boucher (hospitalist) at 0837. She agrees to admit pt for further evaluation. The patient is agreeable with this plan. - Diagnoses Provider Diagnoses: Esophagitis, Chest pain, Hypertension - Provider Notifications Discussed Care Of Patient With: Andreina Boucher Time Discussed With Above Provider: 08:37 Instructed by Provider To: Admit As Inpatient - Consult with Dr. Boucher ( hospitalist) at 0837. She agrees to admit pt for further evaluation. Discharge - Sign-Out/Discharge Documenting (check all that apply): Patient Departure - Admit to [facility], Receiving Sign-Out Receiving patient FROM: Raúl Coon - Upon shift change pending stabilization of vitals - Discharge Plan Condition: Stable Disposition: ADMITTED TO [facility] - Billing Disposition and Condition Condition: STABLE Disposition: Admitted to [facility] - Attestation Statements Document Initiated by Scribe: Yes Documenting Scribe: Mary Ann Provider For Whom Diamondibnhi is Documenting (Include Credential): Marci Kelley MD Scribe Attestation: Mary Ann Oconnell, diamondibed for Marci Kelley MD on 07/14/18 at 1417. Scribe Documentation Reviewed: Yes Provider Attestation: The documentation as recorded by the Mary Ann black accurately reflects the service I personally performed and the decisions made by , Marci Kelley MD
[2018-07-14] MEDS ORDERED: Diltiazem CD CAP* 180 MG PO ONE (08:52)
[2018-07-14] MEDS ORDERED: Zolpidem TAB* 10 MG PO PRN (09:18)
[2018-07-14] MEDS ORDERED: Al Hydrox/Mg Hydrox/Simet LIQ* 30 ML UDC PO PRN (09:18)
[2018-07-14] MEDS ORDERED: Acetaminophen TAB* 325 MG PO PRN (09:18)
[2018-07-14] MEDS ORDERED: hydrALAZINE IV* 20 MG/ML VIAL IV SLOW PU PRN (09:20)
[2018-07-14] MEDS ORDERED: Morphine INJ* 2 MG/ML 1 ML SYRINGE (TWO MG - NEW SYRINGE VERSION) IV PRN (09:22)
[2018-07-14] MEDS ORDERED: Famotidine TAB* 20 MG PO SCH (10:00)
[2018-07-14] MEDS ORDERED: Dextrose 50% Syringe 50 ML* 25 GM/50 ML SYRINGE IV PUSH PRN (11:07)
[2018-07-14] MEDS: Omeprazole CAP* 20 MG PO SCH ×2 (12:07→21:53)
[2018-07-14] MEDS: Famotidine TAB* 20 MG PO SCH (12:11)
[2018-07-14] MEDS: Sucralfate TAB* 1 GM PO SCH ×2 (12:17→17:52)
[2018-07-14] MEDS: Insulin LISPRO* 1 UNITS UNIT SUBCUT SCH ×3 (12:38→21:51)
[2018-07-14] MEDS ORDERED: hydrALAZINE TAB* 10 MG PO SCH (14:00)
--- NOTE | 2018-07-14 14:06 | HP ---
CC: Dr. Tran HISTORY AND PHYSICAL: DATE OF ADMISSION: 07/14/18 TIME OF EVALUATION: 9:05 a.m. PRIMARY CARE PROVIDER: Dr. Tran. CHIEF COMPLAINT: Chest pain. HISTORY OF PRESENT ILLNESS: Mrs. Johnson is a 73-year-old lady with a past medical history of type 2 diabetes, PE, hypertension, GERD, chronic pain, osteoporosis, insomnia, who presents to the emergency room with complaints of chest pain. The patient states that she has "terrible" GERD and she has experienced more symptoms over the past w yurok. She describes the pain as a burning sensation going down from her throat and all the way down h er chest. She rates the pain at 9/10. She is on famotidine, omeprazole, sucralfate as outpatient and she states that despite medications, her symptoms persist and she needs to take other antacids. The patient states that her symptoms also became worse after the recent passing of her . She was medicated in the emergency room with some improvement of her symptoms, but she was noted to h ave very high blood pressures with systolics in the 230s and for that reason, the hospitalist service was consulted. The patient denies headache. Has some nausea. No vomiting and at the time of my interview, her ches t pain is improved. There is no fever, no cough, no shortness of breath. PAST MEDICAL HISTORY: 1. Type 2 diabetes. 2. History of PE. 3. Hypertension. 4. GERD. 5. Chronic pain. 6. Osteoporosis. 7. Insomnia. 8. CKD stage 3. 9. Diabetic nephropathy. PAST SURGICAL HISTORY: 1. Status post pacemaker. 2. Status post cholecystectomy. 3. Status post appendectomy. 4. Status post hysterectomy. 5. Status post T11 to L1 fusion. MEDICATIONS: 1. Acetaminophen 650 mg p.o. q.6 hours p.r.n. pain or fever. 2. Maalox Plus 30 mL p.o. q.6 hours p.r.n. heartburn. 3. Diltiazem CD 240 mg p.o. daily. 4. Colace 100 mg p.o. daily as needed for constipation. 5. Famotidine 10 mg p.o. b.i.d. 6. Folic acid 1 mg p.o. daily. 7. Lorazepam 0.5 mg p.o. q.8 hours p.r.n. anxiety. 8. Metformin 500 mg p.o. b.i.d. 9. Omeprazole 20 mg p.o. daily. 10. Ondansetron 4 mg p.o. q.8 hours p.r.n. nausea. 11. Oxycodone 5 mg p.o. q.6 hours p.r.n. pain. 12. Sertraline 50 mg p.o. daily. 13. Sucralfate 1 g p.o. t.i.d. 14. Thiamine 100 mg p.o. daily. 15. Zolpidem 10 mg p.o. at bedtime as needed for insomnia. ALLERGIES: PENICILLIN, CEPHALEXIN, TRAZODONE, and BETA-BLOCKERS. FAMILY HISTORY: Mother had a history of CVA. Father had a history of cancer and of stroke. SOCIAL HISTORY: No history of tobacco or drug use anymore. She used to be a heavy drinker, but has quit alcohol. Surrogate decision maker is her son, Austin Johnson, phone number is [phone]. REVIEW OF SYSTEMS: A 14-point review of systems was performed and all the pertinent negative and pos itive findings are in the HPI. PHYSICAL EXAMINATION GENERAL: The patient is a pleasant elderly lady, lying in ED stretcher, in no acute distress. VITAL SIGNS: Temperature 98.8, heart rate is 100, respiratory rate is 14, oxygen saturation is 92% o n room air, and blood pressure is 171/125. HEENT: Pupils are equal. Moist mucous membranes. CVS: Normal S1, S2. Regular rate and rhythm with a systolic murmur. CHEST: Breath sounds present bilaterally with no added sounds. ABDOMEN: Soft. Bowel sounds are present. No bruits. EXTREMITIES: No edema. NEUROLOGIC: She is alert and oriented x3. She is able to move all 4 extremities. LABORATORY AND IMAGING DATA: The patient had a CBC that showed a WBC of 12.3, hemoglobin of 9.6, he matocrit of 31, platelets of 305 with 74% neutrophils. Chemistry showed a sodium of 132, potassium 3. 9, chloride of 97, bicarb of 28, BUN of 25, creatinine of 1.4, glucose of 290, calcium of 10.5. LFTs are normal. Urinalysis showed 1+ protein, trace LE, 1+ wbc's. EKG done, 07/14/18, at 5:19 a.m. showed sinus tachycardia at 124 beats per minute with PVCs. No ST-T changes. No significant change when compared to her prior EKG from 06/30/18. ASSESSMENT AND PLAN: Mrs. Johnson is a 73-year-old lady with a past medical history of type 2 diabete s, pulmonary embolism, hypertension, gastroesophageal reflux disease, chronic pain, osteoporosis, ins omnia, chronic kidney disease stage 3, diabetic nephropathy, who presents to the emergency room with complaints of chest pain, likely secondary to her gastroesophageal reflux disease. 1. Chest pain, likely gastrointestinal in nature, rule out acute coronary syndrome. The patient abner cribes having "pretty bad" reflux. She had an endoscopy done in July 2016 that showed grade D ero sive esophagitis. At that point, the recommendation was for her to be on a proton pump inhibitor twi ce a day, Carafate 4 times a day. The patient states that she had some temporary relief of her sympt oms, but they have become more frequent since the passing of her . Her EKG shows no ischemic changes and first troponin was negative. She does have a prior history of coronary embolism, but at this point, I believe, her chest pain is associated with gastroesophageal reflux disease. She will b e observed on telemetry. I am going to increase her omeprazole to twice a day, continue her famotidi ne and Carafate. She will have antacids as needed if the symptoms persist. 2. Hypertensive urgency. The patient at this point has no other symptoms. I am going to increase h er Cardizem to 360 mg daily and add some hydralazine IV. She will need a followup with her primary c are as an outpatient to adjust her antihypertensive regimen. 3. Type 2 diabetes. The patient's last hemoglobin A1c was 9.8 in March. She is on metformin as an o utpatient, but was on hold at this point due to her renal function. While in the hospital, we will m onitor her fingersticks and she will be covered with lispro insulin sliding scale, but she will certa inly benefit from further management as outpatient and may be a good candidate for endocrinology eval uation. 4. Mild hypercalcemia. The patient will receive gentle IV hydration and we will monitor her calcium level. I believe this may be secondary to mild dehydration. 5. DVT prophylaxis: The patient has a score of 6 on the DVT prophylaxis assessment guide and she wi ll be started on subcutaneous heparin and SCDs. 6. Code status is full. TIME SPENT: Approximately 50 minutes were spent with the patient interview, medical records review, physical examination to complete this admission; more than half of this time was spent [id number] w ith the patient and coordination of care. [id number]/[facility] #: [id number]
[2018-07-14] MEDS: Heparin VIAL(*) 5000 UNITS/ML VIAL (FIVE THOUSAND) SUBCUT SCH ×2 (15:33→21:51)
--- NOTE | 2018-07-14 17:55 | PN ---
Hospitalist Progress Note Date of Service: 07/14/18 HOSPITALIST ADDENDUM Called by RN because patient was more lethargic and confused. She's easily arousable to voice, but then closes her eyes and does not answer all questions. Knows she is in the hospital for chest pain, but cannot tell me the date. No gross focal neurodeficit, able to move all 4, no drift, face is symmetric, speech is clear, but she's slower than when I saw her this AM. Suspect she has depression, and this could be causing pseudodementia / sundowning, but need to r/o organic causes. Will check CT brain, BMP, ABG. Continue to monitor.
[2018-07-14 18:03] LABS: EGFR Non-African American 29.9 (>60)
--- NOTE | 2018-07-14 19:06 | RAD ---
EXAM: CT Head Without Intravenous Contrast CLINICAL HISTORY: 73 years old, female; Signs and symptoms; Altered mental status/memory loss; Additional info: Confusion TECHNIQUE: Axial computed tomography images of the head/brain without intravenous contrast. All CT scans at this facility use at least one of these dose optimization techniques: automated exposure control; mA and/or kV adjustment per patient size (includes targeted exams where dose is matched to clinical indication); or iterative reconstruction. COMPARISON: CT BRAIN WO 10/20/2017 8:33 PM FINDINGS: Brain: There is no acute intracranial hemorrhage, extraaxial collection or mass effect. Grider white differentiation is maintained throughout the brain. Periventricular white matter lucency likely represents small vessel ischemic change. There is diffuse cortical volume loss consistent with patient's age. Ventricles: There is persistent bilateral ventriculomegaly, out of proportion to other CSF spaces, unchanged since prior studies. Bones/joints: No acute fracture or aggressive osseous lesions Soft tissues: Unremarkable. Sinuses: Unremarkable as visualized. No acute sinusitis. Mastoid air cells: Unremarkable as visualized. No mastoid effusion. IMPRESSION: 1. No acute intracranial findings or change since prior. 2. Chronic and age-related change as above.
[2018-07-15] MEDS: oxyCODONE TAB* 5 MG TAB PO PRN ×2 (04:15→12:32)
[2018-07-15] MEDS: Docusate CAP* 100 MG PO PRN ×2 (04:15→12:24)
[2018-07-15] MEDS: Heparin VIAL(*) 5000 UNITS/ML VIAL (FIVE THOUSAND) SUBCUT SCH ×3 (05:56→21:58)
[2018-07-15 06:14] LABS: ABS Basophils 0 10^3/ul (0-0.2); ABS Eosinophils 0.3 10^3/ul (0-0.6); ABS Lymphocytes 2.3 10^3/ul (1.0-4.8); ABS Monocytes 0.9 10^3/ul (0-0.8); ABS Neutrophils 7.8 10^3/ul (1.5-7.7); ABS Nucleated RBC 0 10^3/ul; Eosinophil % 2.4 % (0-6); Hematocrit 28 % (35-47); Hemoglobin 8.6 g/dl (12.0-16.0); Lymphocyte % 20.3 % (25-47); Mean Corpuscular HGB Conc 31 g/dl (31-36); Mean Corpuscular Hemoglobin 22 pg (27-31); Mean Corpuscular Volume 71 fL (80-97); Mean Platelet Volume 8.3 um3 (7.4-10.4); Nucleated Red Blood Cells % 0; Platelet Count 280 10^3/ul (150-450); Red Blood Count 3.92 10^6/ul (4.00-5.40); Red Cell Distribution Width 17 % (10.5-15); White Blood Count 11.2 10^3/ul (3.5-10.8)
[2018-07-15 06:27] LABS: EGFR Non-African American 33.6 (>60)
[2018-07-15] MEDS: Insulin LISPRO* 1 UNITS UNIT SUBCUT SCH ×4 (07:54→21:58)
[2018-07-15] MEDS: Famotidine TAB* 20 MG PO SCH (08:10)
[2018-07-15] MEDS: Folic Acid TAB* 1 MG PO SCH (08:10)
[2018-07-15] MEDS: Sucralfate TAB* 1 GM PO SCH ×4 (08:10→17:26)
[2018-07-15] MEDS: Omeprazole CAP* 20 MG PO SCH ×2 (08:10→21:51)
[2018-07-15] MEDS: Thiamine TAB* 100 MG TAB PO SCH (08:10)
[2018-07-15] MEDS ORDERED: Diltiazem CD CAP* 180 MG PO SCH (09:00)
[2018-07-15] MEDS ORDERED: Sertraline* 50 MG TAB PO SCH (09:00)
--- NOTE | 2018-07-15 13:57 | PN ---
Subjective Date of Service: 07/15/18 Interval History: HOSPITALIST PROGRESS NOTE Patient seen and examined at bedside. Care reviewed and d/w Heath Echavarria RN. She feels a little better today. Chest pain is less intense, but still present, especially after meals. Still confused, doesn't remember last night events or conversations with RN. Family History: Unchanged from Admission Social History: Unchanged from Admission Past Medical History: Unchanged from Admission Objective Active Medications: Acetaminophen (Tylenol Tab*) 650 mg PO Q6H PRN PRN Reason: PAIN Al Hydrox/Mg Hydrox/Simethicone (Maalox Plus*) 30 ml PO Q6H PRN PRN Reason: HEARTBURN Dextrose (D50w Syringe 50 Ml*) 12.5 gm IV PUSH .FOR FS < 60 - SS PRN PRN Reason: FS < 60 Diltiazem HCl (Cardizem Cd Cap*) 360 mg PO DAILY [facility] Last Admin: 07/15/18 08:11 Dose: 360 mg Docusate Sodium (Colace Cap*) 100 mg PO DAILY PRN PRN Reason: CONSTIPATION Last Admin: 07/15/18 12:24 Dose: 100 mg Famotidine (Pepcid Tab*) 20 mg PO DAILY [facility] Last Admin: 07/15/18 08:10 Dose: 20 mg Folic Acid (Folvite Tab*) 1 mg PO DAILY [facility] Last Admin: 07/15/18 08:10 Dose: 1 mg Heparin Sodium (Porcine) (Heparin Vial(*)) 5,000 units SUBCUT Q8HR [facility] Last Admin: 07/15/18 05:56 Dose: Not Given Hydralazine HCl (Apresoline Iv*) 5 mg IV SLOW PU Q4H PRN PRN Reason: SBP>180 Aztreonam 1 gm/ Sodium (Chloride) 50 mls @ 200 mls/hr IVPB Q8H [facility] Insulin Human Lispro (Humalog*) 0 units SUBCUT ACHS [facility]; Protocol Last Admin: 07/15/18 11:39 Dose: Not Given Lorazepam (Ativan Tab(*)) 0.5 mg PO Q8H PRN PRN Reason: ANXIETY Morphine Sulfate (Morphine Inj ((Syringe))*) 2 mg IV Q4H PRN PRN Reason: SEVERE PAIN Omeprazole (Prilosec Cap*) 20 mg PO BID [facility] Last Admin: 07/15/18 08:10 Dose: 20 mg Oxycodone HCl (Roxycodone Tab*) 5 mg PO Q6H PRN PRN Reason: PAIN Last Admin: 07/15/18 12:32 Dose: 5 mg Sertraline HCl (Zoloft*) 50 mg PO DAILY [facility] Last Admin: 07/15/18 08:10 Dose: 50 mg Sucralfate (Carafate*) 1 gm PO AC [facility] Last Admin: 07/15/18 11:39 Dose: Not Given Thiamine HCl (Vitamin B-1 Tab*) 100 mg PO DAILY [facility] Last Admin: 07/15/18 08:10 Dose: 100 mg Zolpidem Tartrate (Ambien Tab*) 10 mg PO BEDTIME PRN PRN Reason: INSOMNIA Vital Signs - 8 hr 07/15/18 07/15/18 07/15/18 07:54 08:08 11:36 Temperature 98.0 F 98.8 F Pulse Rate 78 74 Respiratory 16 20 Rate Blood Pressure 115/63 108/50 (mmHg) O2 Sat by Pulse 95 96 Oximetry Oxygen Devices in Use Now: None Appearance: Elderly lady sitting up in bed in NAD. Eyes: No Scleral Icterus Ears/Nose/Mouth/Throat: Mucous Membranes Moist Neck: Trachea Midline Respiratory: Symmetrical Chest Expansion and Respiratory Effort, Clear to Auscultation Cardiovascular: RRR - Normal S1 and S2, +SM Abdominal: NL Sounds; No Tenderness; No Distention Neurological: Alert and Oriented x 3, NL Muscle Strength and Tone Result Diagrams: 07/15/18 05:53 07/15/18 05:53 Microbiology and Other Data: Microbiology 07/14/18 07:42 Urine Culture - Preliminary Urine Escherichia Coli Assess/Plan/Problems-Billing Assessment: Mrs Johnson is a 73yo F with PMH of type 2 DM, PE, HTN, GERD, chronic pain, osteoporosis, insomnia, CKD stage 3, diabetic nephropathy, who presented to ED with c/o chest pain, likely GI in nature. - Patient Problems (1) Chest pain Comment: - ACS ruled out. - No significant arrhythmias on tele - will d/c it. - Negative stress test March 2018. - Likely secondary to GERD - continue omeprazole, famotidine, and Carafate. (2) Hypertensive urgency Comment: - Suspect secondary to non-compliance. - SBP 230 on admission - increased Cardizem to 360mg and SBP now 100 - will change dose back to 240mg. - Continue to monitor. (3) Confusion Comment: - Multifactorial. - Patient has UTI - urine cultures growing E. coli - allergic to penicillin and cephalexin (rash) - will start Aztreonam. - Also vitamin B12 low normal - will replete. - Clinical picture suggestive of dementia with sundowning, but patient also seems to be depressed with progressive decline since her passed in March , suggesting pseudodementia - increase Sertraline to 75mg/day. - D/w PCP - patient has a h/o alcohol abuse. Her passed of ETOH related liver disease. Will add ETOH level to admission blood test. Add thiamine for possible Wernicke's. - CT brain was negative, ABG did not show CO2 retention. (4) Anemia Comment: - Hypochromic, microcytic - check w/u. (5) E. coli UTI Comment: - Start Aztreonam. (6) Systolic murmur Comment: - Check echo. (7) Diabetes mellitus Comment: - Hemoglobin A1c 8.5. - Continue Lispro SS. - Awaiting Endocrinology input. (8) DVT prophylaxis Comment: - SQ heparin. (9) Full code status Current Visit: Yes Status: Acute Code(s): Z78.9 - OTHER SPECIFIED HEALTH STATUS SNOMED Code(s): 073619208 Status and Disposition: Change to inpatient.
[2018-07-15] MEDS: Aztreonam (*) 1 GM in NS 0.9% 50 ML* 50 ML IVPB SCH ×2 (13:58→21:46)
[2018-07-15] MEDS: Thiamine IV* 500 MG in NS 0.9% 250 ML* 250 ML IV SCH ×2 (16:32→22:26)
[2018-07-15] MEDS: Cyanocobalamin INJ * 1,000 MCG/ML VIAL 1 ML VIAL IM SCH (18:29)
--- NOTE | 2018-07-15 21:43 | ECHO ---
Patient: DORIS DESAI [facility] Rec#: [id number] : 1945 Date: 07/15/2018 Age: 73y Height: 157 cm / 61.8 in Weight: 61 kg / 134.4 lbs Sex: F BSA: 1.61 Room#: 445 Admit Date#: 07/15/2018 Type: Inpatient Referring: Andreina Jackson MD Reading: Gorge Snyder MD Data Control Clerk: Dorene Mir MANDY CC: Rosa Tran MD Transthoracic Echocardiogram Indication: Murmur BP: 108/50 HR: 77 Rhythm: NSR Findings History: DM,prior PE,GERD,chronic pain,osteoporosis,CKD stage III,s/p pacer insert, murmur. Technical Comments: The study quality is good. Completed at 1616. Left Ventricle: The left ventricular chamber size is normal. There is normal left ventricular systolic function. The estimated ejection fraction is 55-60%. There is abnormal ventricular septal wall motion consistent with right ventricular pacemaker. Abnormal left ventricular diastolic function is observed. Left Atrium: The left atrium is moderately dilated. Right Ventricle: The right ventricular cavity size is normal. The right ventricular global systolic function is normal. The septum has abnormal paradoxical motion consistent with RV pacemaker. A pacemaker wire is visualized in the right ventricle. Right Atrium: The right atrial cavity size is normal. A pacemaker wire is visualized in the right atrium. Aortic Valve: The aortic valve is trileaflet. The aortic valve leaflets are mildly thickened. Mild aortic cusp sclerosis is present. There is mild to moderate aortic regurgitation. There is mild to moderate aortic stenosis. The mean gradient of the aortic valve is 14 mmHg. The highest aortic valve velocity was obtained with the standard probe from the A3C view. Mitral Valve: There is mitral annular calcification. The mitral valve leaflets are mildly thickened. There is mild mitral regurgitation. There is no evidence of mitral stenosis. Tricuspid Valve: The tricuspid valve leaflets are normal. There is mild to moderate tricuspid regurgitation. There is evidence of mild to moderate pulmonary hypertension. There is no tricuspid stenosis. Pulmonic Valve: The pulmonic valve appears normal in structure and function. There is no evidence of pulmonic regurgitation. There is no pulmonic stenosis. Pericardium: There is no pericardial effusion. A pericardial fat pad is visualized. Aorta: There is no dilatation of the ascending aorta. There is no dilatation of the aortic arch. There is no dilation of the aortic root. Pulmonary Artery: The main pulmonary artery appears normal. Venous: The inferior vena cava appears normal in size. There is a greater than 50% respiratory change in the inferior vena cava dimension. Conclusions There is normal left ventricular systolic function. The estimated ejection fraction is 55-60%. There is abnormal ventricular septal wall motion consistent with right ventricular pacemaker. The right ventricular global systolic function is normal. The aortic valve leaflets are mildly thickened. There is mild to moderate aortic regurgitation. There is mild to moderate aortic stenosis. The mean gradient of the aortic valve is 14 mmHg. There is mild mitral regurgitation. There is mild to moderate tricuspid regurgitation. There is evidence of mild to moderate pulmonary hypertension. There is no pericardial effusion. Compared to study of 08/20/12, the LV function is the same. The Aortic regurgitation and Aortic stenosis is new Measurements Name Value Normal Range RVIDd (AP) 2D 3.7 cm (0.9 - 2.6) RVDdMajor (2D) 3 cm (2.2 - 4.4) RAd ISD 4CH 3.6 cm (3.4 - 4.9) RA (A4C)W 3.3 cm (2.9 - 4.6) IVSd (2D) 0.9 cm (0.6 - 1) LVPWd (2D) 0.9 cm (0.6 - 1) LVIDd (2D) 3.6 cm (3.6 - 5.4) Aortic Annulus 1.5 cm (1.4 - 2.6) Ao root diameter (2D) 2.3 cm (2.1 - 3.5) Ascending Ao 2.6 cm (2.1 - 3.4) Aortic arch 1.8 cm (1.8 - 3.4) Descending Ao 0.6 cm - LA dimension (AP) 2D 4.7 cm (2.3 - 3.8) LAd ISD 4CH 5.8 cm (2.9 - 5.3) LA ISD 4CH W 3.8 cm (2.5 - 4.5) Name Value Normal Range LA ESV SP 4CH (A/L) 28 ml - LA ESV SP 2CH (A/L) 30 ml - LA ESV BP (A/L) index 29 ml/m2 - Name Value Normal Range MV E-wave Vmax 1 m/sec - MV deceleration time 229 msec - MV A-wave Vmax 1.1 m/sec - MV E:A ratio 0.9 ratio - LV septal e' Vmax 0.05 m/sec - LV lateral e' Vmax 0.06 m/sec - LV E:e' septal ratio 20 ratio - LV E:e' lateral ratio 16.67 ratio - Name Value Normal Range AV Vmax 2.6 m/sec - AV VTI 54.6 cm - AV peak gradient 28 mmHg - AV mean gradient 14 mmHg - LVOT diameter 1.4 cm - LVOT Vmax 1.3 m/sec - LVOT VTI 23.5 cm - LVOT peak gradient 6 mmHg - LVOT mean gradient 3 mmHg - PHUONG (continuity Vmax) 0.6 cm2 - PHUONG (continuity VTI) 0.5 cm2 - Name Value Normal Range TR Vmax 3.4 m/sec - TR peak gradient 39 mmHg - RAP 3 mmHg - RVSP 42 mmHg - IVC diameter 1.2 cm - Name Value Normal Range PV Vmax 0.9 m/sec - PV peak gradient 3 mmHg -
[2018-07-16] MEDS: oxyCODONE TAB* 5 MG TAB PO PRN ×2 (02:32→08:45)
[2018-07-16] MEDS: Aztreonam (*) 1 GM in NS 0.9% 50 ML* 50 ML IVPB SCH ×3 (03:48→21:31)
[2018-07-16] MEDS: Heparin VIAL(*) 5000 UNITS/ML VIAL (FIVE THOUSAND) SUBCUT SCH ×3 (05:13→21:37)
[2018-07-16 05:58] LABS: Hematocrit 27 % (35-47); Hemoglobin 8.6 g/dl (12.0-16.0)
[2018-07-16 07:00] LABS: EGFR Non-African American 37.3 (>60)
[2018-07-16] MEDS: Sucralfate TAB* 1 GM PO SCH ×3 (07:53→17:17)
[2018-07-16] MEDS: Thiamine IV* 500 MG in NS 0.9% 250 ML* 250 ML IV SCH ×2 (08:07→12:32)
[2018-07-16] MEDS: Insulin LISPRO* 1 UNITS UNIT SUBCUT SCH ×4 (08:08→21:35)
[2018-07-16] MEDS: LORazepam TAB(*) 0.5 MG PO PRN (08:44)
--- NOTE | 2018-07-16 08:55 | PN ---
Subjective Date of Service: 07/16/18 Interval History: HOSPITALIST PROGRESS NOTE Patient seen and examined at bedside. Care reviewed and d/w Ruth Tran RN. Family History: Unchanged from Admission Social History: Unchanged from Admission Past Medical History: Unchanged from Admission Objective Active Medications: Acetaminophen (Tylenol Tab*) 650 mg PO Q6H PRN PRN Reason: PAIN Al Hydrox/Mg Hydrox/Simethicone (Maalox Plus*) 30 ml PO Q6H PRN PRN Reason: HEARTBURN Cyanocobalamin (Vitamin B12 Inj *) 1,000 mcg IM DAILY [facility] Stop: 07/17/18 09:01 Last Admin: 07/15/18 18:29 Dose: Not Given Dextrose (D50w Syringe 50 Ml*) 12.5 gm IV PUSH .FOR FS < 60 - SS PRN PRN Reason: FS < 60 Diltiazem HCl (Cardizem Cd Cap*) 240 mg PO DAILY [facility] Docusate Sodium (Colace Cap*) 100 mg PO DAILY PRN PRN Reason: CONSTIPATION Last Admin: 07/15/18 12:24 Dose: 100 mg Famotidine (Pepcid Tab*) 20 mg PO DAILY [facility] Last Admin: 07/15/18 08:10 Dose: 20 mg Folic Acid (Folvite Tab*) 1 mg PO DAILY [facility] Last Admin: 07/15/18 08:10 Dose: 1 mg Heparin Sodium (Porcine) (Heparin Vial(*)) 5,000 units SUBCUT Q8HR [facility] Last Admin: 07/16/18 05:13 Dose: Not Given Hydralazine HCl (Apresoline Iv*) 5 mg IV SLOW PU Q4H PRN PRN Reason: SBP>180 Aztreonam 1 gm/ Sodium (Chloride) 50 mls @ 200 mls/hr IVPB Q8H [facility] Last Admin: 07/16/18 03:48 Dose: 200 mls/hr Thiamine HCl 500 mg/ Sodium (Chloride) 255 mls @ 255 mls/hr IV Q8H [facility] Last Admin: 07/16/18 08:07 Dose: Not Given Insulin Human Lispro (Humalog*) 0 units SUBCUT ACHS [facility]; Protocol Last Admin: 07/16/18 08:08 Dose: Not Given Lorazepam (Ativan Tab(*)) 0.5 mg PO Q8H PRN PRN Reason: ANXIETY Last Admin: 07/16/18 08:44 Dose: 0.5 mg Morphine Sulfate (Morphine Inj ((Syringe))*) 2 mg IV Q4H PRN PRN Reason: SEVERE PAIN Omeprazole (Prilosec Cap*) 20 mg PO BID [facility] Last Admin: 07/15/18 21:51 Dose: 20 mg Oxycodone HCl (Roxycodone Tab*) 5 mg PO Q6H PRN PRN Reason: PAIN Last Admin: 07/16/18 08:45 Dose: 5 mg Sertraline HCl (Zoloft*) 75 mg PO DAILY [facility] Sucralfate (Carafate*) 1 gm PO AC [facility] Last Admin: 07/16/18 07:53 Dose: 1 gm Thiamine HCl (Vitamin B-1 Tab*) 100 mg PO DAILY [facility] Last Admin: 07/15/18 08:10 Dose: 100 mg Zolpidem Tartrate (Ambien Tab*) 10 mg PO BEDTIME PRN PRN Reason: INSOMNIA Vital Signs - 8 hr 07/16/18 07/16/18 07/16/18 02:32 03:49 04:30 Temperature 98.1 F Pulse Rate 81 Respiratory 16 18 18 Rate Blood Pressure 128/66 (mmHg) O2 Sat by Pulse 96 Oximetry 07/16/18 07/16/18 07/16/18 08:01 08:44 08:45 Temperature 98.7 F Pulse Rate 88 Respiratory 16 16 16 Rate Blood Pressure 156/77 (mmHg) O2 Sat by Pulse 97 Oximetry Oxygen Devices in Use Now: None Result Diagrams: 07/16/18 05:38 07/16/18 05:38 Microbiology and Other Data: Microbiology 07/14/18 07:42 Urine Culture - Preliminary Urine Escherichia Coli Assess/Plan/Problems-Billing Assessment: Mrs Johnson is a 73yo F with PMH of type 2 DM, PE, HTN, GERD, chronic pain, osteoporosis, insomnia, CKD stage 3, diabetic nephropathy, who presented to ED with c/o chest pain, likely GI in nature. - Patient Problems (1) Chest pain Comment: - ACS ruled out. - No significant arrhythmias on tele. - Negative stress test March 2018. - Likely secondary to GERD - continue omeprazole, famotidine, and Carafate. (2) Hypertensive urgency Comment: - Suspect secondary to non-compliance. - SBP 230 on admission - increased Cardizem to 360mg and SBP now 100 - will change dose back to 240mg. - Continue to monitor. (3) Confusion Comment: - Multifactorial. - Patient has UTI - urine cultures growing pansensitive E. coli - allergic to penicillin and cephalexin (rash) - continue Aztreonam. Will probably discharge on Nitrofurantoin or Bactrim. - Also vitamin B12 low normal - will replete. - Clinical picture suggestive of dementia with sundowning, but patient also seems to be depressed with progressive decline since her passed in March , suggesting pseudodementia - increase Sertraline to 75mg/day. - D/w PCP - patient has a h/o alcohol abuse. Her passed of ETOH related liver disease. ETOH level on admission was negative. Patient states she used to drink up to half a bottle of wine a day, but has not had any alcohol for the last 3 weeks. Continue thiamine for possible Wernicke's #2/5. - CT brain was negative, ABG did not show CO2 retention. (4) Anemia Comment: - Iron deficiency - will replete. - Check stool for occult blood. (5) E. coli UTI Comment: - Continue Aztreonam #2 - see above. (6) Systolic murmur Comment: - Echo showed EF 55-60% with mild to moderate aortic regurgitation and stenosis. (7) Diabetes mellitus Comment: - Hemoglobin A1c 8.5. - Continue Lispro SS. - Endocrinology input appreciated - start glipizide XL 2.5mg/day and monitor. May add Sitagliptin 50mg/day on discharge depending on glycemic control. (8) DVT prophylaxis Comment: - SQ heparin. (9) Full code status Code(s): Z78.9 - OTHER SPECIFIED HEALTH STATUS SNOMED Code(s): 038075573 Status and Disposition: Change to inpatient.
[2018-07-16] MEDS: Folic Acid TAB* 1 MG PO SCH (09:20)
[2018-07-16] MEDS: Diltiazem CD CAP* 240 MG PO SCH (09:20)
[2018-07-16] MEDS: Famotidine TAB* 20 MG PO SCH (09:26)
[2018-07-16] MEDS: Thiamine TAB* 100 MG TAB PO SCH (09:27)
[2018-07-16] MEDS: Sertraline* 25 MG TAB PO SCH (09:27)
[2018-07-16] MEDS: Omeprazole CAP* 20 MG PO SCH ×2 (09:28→21:38)
[2018-07-16] MEDS: Cyanocobalamin INJ * 1,000 MCG/ML VIAL 1 ML VIAL IM SCH (10:15)
--- NOTE | 2018-07-16 13:36 | CONSULT ---
Consult Consult: Endocrinology Inpatient Consult Date of Service: 07/16/18 Reason for Consult: T2DM, hyperglycemia Assessment: 73 yo F with CKD and long-standing T2DM, generally well-controlled, but recent A1c 8.5%, now presenting with non-cardiac chest pain syndrome. The of her several months ago was a significant loss for her and has resulted in deterioration of glycemic control. Her BG has been <200 for the past 48 hours with minimal need for catch-up insulin. It is unlikely that she would need (or would be safe to use) insulin at home. Metformin is no longer an option when eGFR<30 and low-dose metformin for eGFR<45 is unlikely to provide any tangible improvement in A1c. Glipizide and DPP4 inhibitors are generally safe in CKD and could provide improved glycemic control. Plan: - start glipizide XL 2.5mg once daily in the morning - caution with use of this medication in patients at risk for hypoglycemia - consider starting sitagliptin 50mg once daily in the morning at discharge - controlled carbohydrate diet HPI: 73 yo F with CKD3, GERD, T2DM with A1c >8%, admitted for non-cardiac chest pain. Endocrine consulted for glycemic management while in hospital. She has previously used metformin to control BG which was recently reduced to 500mg BID due to falling eGFR. Complications of diabetes include nephropathy. Outpatient Medications: Reviewed from H&P. Allergies: PCN and related, trazodone, beta-blockers Social History: Lives alone. Recently . Has had increasing difficulty with IADLs since her . Denies alcohol/tobacco. Inpatient Meds: Acetaminophen (Tylenol Tab*) 650 mg PO Q6H PRN PRN Reason: PAIN Al Hydrox/Mg Hydrox/Simethicone (Maalox Plus*) 30 ml PO Q6H PRN PRN Reason: HEARTBURN Cyanocobalamin (Vitamin B12 Inj *) 1,000 mcg IM DAILY [facility] Stop: 07/17/18 09:01 Last Admin: 07/16/18 10:15 Dose: 1,000 mcg Dextrose (D50w Syringe 50 Ml*) 12.5 gm IV PUSH .FOR FS < 60 - SS PRN PRN Reason: FS < 60 Diltiazem HCl (Cardizem Cd Cap*) 240 mg PO DAILY [facility] Last Admin: 07/16/18 09:20 Dose: 240 mg Docusate Sodium (Colace Cap*) 100 mg PO DAILY PRN PRN Reason: CONSTIPATION Last Admin: 07/15/18 12:24 Dose: 100 mg Famotidine (Pepcid Tab*) 20 mg PO DAILY [facility] Last Admin: 07/16/18 09:26 Dose: 20 mg Folic Acid (Folvite Tab*) 1 mg PO DAILY [facility] Last Admin: 07/16/18 09:20 Dose: 1 mg Heparin Sodium (Porcine) (Heparin Vial(*)) 5,000 units SUBCUT Q8HR [facility] Last Admin: 07/16/18 14:26 Dose: Not Given Hydralazine HCl (Apresoline Iv*) 5 mg IV SLOW PU Q4H PRN PRN Reason: SBP>180 Aztreonam 1 gm/ Sodium (Chloride) 50 mls @ 200 mls/hr IVPB Q8H [facility] Last Admin: 07/16/18 13:34 Dose: 200 mls/hr Thiamine HCl 500 mg/ Sodium (Chloride) 255 mls @ 255 mls/hr IV Q8H [facility] Last Admin: 07/16/18 12:32 Dose: 255 mls/hr Influenza Virus Vaccine (Fluarix *Quad* 2017-*) 0.5 ml IM .ONCE ONE Stop: 07/17/18 09:01 Insulin Human Lispro (Humalog*) 0 units SUBCUT [facility]; Protocol Last Admin: 07/16/18 17:17 Dose: Not Given Lorazepam (Ativan Tab(*)) 0.5 mg PO Q8H PRN PRN Reason: ANXIETY Last Admin: 07/16/18 08:44 Dose: 0.5 mg Morphine Sulfate (Morphine Inj ((Syringe))*) 2 mg IV Q4H PRN PRN Reason: SEVERE PAIN Last Admin: 07/16/18 11:49 Dose: 2 mg Omeprazole (Prilosec Cap*) 20 mg PO BID [facility] Last Admin: 07/16/18 09:28 Dose: 20 mg Oxycodone HCl (Roxycodone Tab*) 5 mg PO Q6H PRN PRN Reason: PAIN Last Admin: 07/16/18 08:45 Dose: 5 mg Sertraline HCl (Zoloft*) 75 mg PO DAILY [facility] Last Admin: 07/16/18 09:27 Dose: 75 mg Sucralfate (Carafate*) 1 gm PO AC [facility] Last Admin: 07/16/18 17:17 Dose: Not Given Thiamine HCl (Vitamin B-1 Tab*) 100 mg PO DAILY [facility] Last Admin: 07/16/18 09:27 Dose: 100 mg Zolpidem Tartrate (Ambien Tab*) 10 mg PO BEDTIME PRN PRN Reason: INSOMNIA Vital Signs: Temp Pulse Resp BP Pulse Ox 98.2 F 89 14 131/74 94 07/16/18 16:03 07/16/18 16:03 07/16/18 16:03 07/16/18 16:03 07/16/18 16:03 Gen: alert, oriented Psych: restricted affect ENT: no thyromegaly Chest; clear anteriorly CV: RRR no M Ext: no edema or ulcers Abnormal Lab Results 07/15/18 07/16/18 07/16/18 20:06 05:38 05:38 Hgb 8.6 L Hct 27 L Sodium 138 Potassium 3.7 Chloride 107 Carbon Dioxide 23 Anion Gap 8 BUN 21 Creatinine 1.38 H Est GFR ( Amer) 45.1 Est GFR (Non-Af Amer) 37.3 BUN/Creatinine Ratio 15.2 Glucose 176 H POC Glucose (mg/dL) 198 H Calcium 8.6 07/16/18 07/16/18 11:37 16:56 Hgb Hct Sodium Potassium Chloride Carbon Dioxide Anion Gap BUN Creatinine Est GFR ( Amer) Est GFR (Non-Af Amer) BUN/Creatinine Ratio Glucose POC Glucose (mg/dL) 184 H 151 H Calcium
--- NOTE | 2018-07-16 14:27 | PN ---
Subjective Date of Service: 07/16/18 Interval History: HOSPITALIST PROGRESS NOTE Patient seen and examined at bedside. Care reviewed and d/w Ruth Tran RN. Initially patient wanted her IV removed, refused FS, but after conversation about her diagnoses, she's agreeable with continuation of treatment. Chest pain is much improved, tolerating diet well. Confusion continues to wax and wane. Family History: Unchanged from Admission Social History: Unchanged from Admission Past Medical History: Unchanged from Admission Objective Active Medications: Acetaminophen (Tylenol Tab*) 650 mg PO Q6H PRN PRN Reason: PAIN Al Hydrox/Mg Hydrox/Simethicone (Maalox Plus*) 30 ml PO Q6H PRN PRN Reason: HEARTBURN Cyanocobalamin (Vitamin B12 Inj *) 1,000 mcg IM DAILY [facility] Stop: 07/17/18 09:01 Last Admin: 07/16/18 10:15 Dose: 1,000 mcg Dextrose (D50w Syringe 50 Ml*) 12.5 gm IV PUSH .FOR FS < 60 - SS PRN PRN Reason: FS < 60 Diltiazem HCl (Cardizem Cd Cap*) 240 mg PO DAILY [facility] Last Admin: 07/16/18 09:20 Dose: 240 mg Docusate Sodium (Colace Cap*) 100 mg PO DAILY PRN PRN Reason: CONSTIPATION Last Admin: 07/15/18 12:24 Dose: 100 mg Famotidine (Pepcid Tab*) 20 mg PO DAILY [facility] Last Admin: 07/16/18 09:26 Dose: 20 mg Folic Acid (Folvite Tab*) 1 mg PO DAILY [facility] Last Admin: 07/16/18 09:20 Dose: 1 mg Heparin Sodium (Porcine) (Heparin Vial(*)) 5,000 units SUBCUT Q8HR [facility] Last Admin: 07/16/18 05:13 Dose: Not Given Hydralazine HCl (Apresoline Iv*) 5 mg IV SLOW PU Q4H PRN PRN Reason: SBP>180 Aztreonam 1 gm/ Sodium (Chloride) 50 mls @ 200 mls/hr IVPB Q8H [facility] Last Admin: 07/16/18 13:34 Dose: 200 mls/hr Thiamine HCl 500 mg/ Sodium (Chloride) 255 mls @ 255 mls/hr IV Q8H [facility] Last Admin: 09/18/18 12:32 Dose: 255 mls/hr Influenza Virus Vaccine (Fluarix *Quad* *) 0.5 ml IM .ONCE ONE Stop: 07/17/18 09:01 Insulin Human Lispro (Humalog*) 0 units SUBCUT ACHS [facility]; Protocol Last Admin: 07/16/18 11:49 Dose: 1 units Lorazepam (Ativan Tab(*)) 0.5 mg PO Q8H PRN PRN Reason: ANXIETY Last Admin: 07/16/18 08:44 Dose: 0.5 mg Morphine Sulfate (Morphine Inj ((Syringe))*) 2 mg IV Q4H PRN PRN Reason: SEVERE PAIN Last Admin: 07/16/18 11:49 Dose: 2 mg Omeprazole (Prilosec Cap*) 20 mg PO BID [facility] Last Admin: 07/16/18 09:28 Dose: 20 mg Oxycodone HCl (Roxycodone Tab*) 5 mg PO Q6H PRN PRN Reason: PAIN Last Admin: 07/16/18 08:45 Dose: 5 mg Sertraline HCl (Zoloft*) 75 mg PO DAILY [facility] Last Admin: 07/16/18 09:27 Dose: 75 mg Sucralfate (Carafate*) 1 gm PO AC [facility] Last Admin: 07/16/18 11:49 Dose: 1 gm Thiamine HCl (Vitamin B-1 Tab*) 100 mg PO DAILY [facility] Last Admin: 07/16/18 09:27 Dose: 100 mg Zolpidem Tartrate (Ambien Tab*) 10 mg PO BEDTIME PRN PRN Reason: INSOMNIA Vital Signs - 8 hr 07/16/18 07/16/18 07/16/18 08:00 08:01 08:44 Temperature 98.7 F Pulse Rate 88 Respiratory 16 16 16 Rate Blood Pressure 156/77 (mmHg) O2 Sat by Pulse 97 Oximetry Oxygen Devices in Use Now: None Appearance: Pleasant lady lying in bed in NAD. Eyes: No Scleral Icterus Ears/Nose/Mouth/Throat: Mucous Membranes Moist Neck: Trachea Midline Respiratory: Symmetrical Chest Expansion and Respiratory Effort, Clear to Auscultation Cardiovascular: RRR - Normal S1 and S2 Extremities: No Edema Neurological: Alert and Oriented x 3, NL Muscle Strength and Tone Result Diagrams: 07/16/18 05:38 07/16/18 05:38 Assess/Plan/Problems-Billing Assessment: Mrs Johnson is a 73yo F with PMH of type 2 DM, PE, HTN, GERD, chronic pain, osteoporosis, insomnia, CKD stage 3, diabetic nephropathy, who presented to ED with c/o chest pain, likely GI in nature. - Patient Problems (1) Chest pain Comment: - ACS ruled out. - No significant arrhythmias on tele. - Negative stress test March 2018. - Likely secondary to GERD - continue omeprazole, famotidine, and Carafate. (2) Hypertensive urgency Comment: - Suspect secondary to non-compliance. - SBP 230 on admission - increased Cardizem to 360mg and SBP now 100 - will change dose back to 240mg. - Continue to monitor. (3) Confusion Comment: - Multifactorial. - Patient has UTI - urine cultures growing pansensitive E. coli - allergic to penicillin and cephalexin (rash) - continue Aztreonam. Will probably discharge on Nitrofurantoin or Bactrim. - Also vitamin B12 low normal - will replete. - Clinical picture suggestive of dementia with sundowning, but patient also seems to be depressed with progressive decline since her passed in March , suggesting pseudodementia - increase Sertraline to 75mg/day. - D/w PCP - patient has a h/o alcohol abuse. Her passed of ETOH related liver disease. ETOH level on admission was negative. Patient states she used to drink up to half a bottle of wine a day, but has not had any alcohol for the last 3 weeks. Continue thiamine for possible Wernicke's #2/5. - CT brain was negative, ABG did not show CO2 retention. (4) E. coli UTI Comment: - Continue Aztreonam #2 - see above. (5) Anemia Comment: - Iron deficiency - will replete. - Check stool for occult blood. (6) Systolic murmur Comment: - Echo showed EF 55-60% with mild to moderate aortic regurgitation and stenosis. (7) Diabetes mellitus Comment: - Hemoglobin A1c 8.5. - Continue Lispro SS. - Endocrinology input appreciated - start glipizide XL 2.5mg/day and monitor. May add Sitagliptin 50mg/day on discharge depending on glycemic control. (8) DVT prophylaxis Comment: - SQ heparin. (9) Full code status Status and Disposition: Inpatient.
[2018-07-16] MEDS ORDERED: Ferric Gluconate IV* 25 MG in NS 0.9% 50 ML* 50 ML IVPB ONE (14:33)
[2018-07-17] MEDS: Thiamine IV* 500 MG in NS 0.9% 250 ML* 250 ML IV SCH ×4 (00:13→17:45)
[2018-07-17] MEDS: Aztreonam (*) 1 GM in NS 0.9% 50 ML* 50 ML IVPB SCH ×2 (04:11→11:57)
[2018-07-17] MEDS: Heparin VIAL(*) 5000 UNITS/ML VIAL (FIVE THOUSAND) SUBCUT SCH ×2 (06:09→14:14)
[2018-07-17] MEDS: LORazepam TAB(*) 0.5 MG PO PRN ×2 (06:13→14:13)
[2018-07-17 07:27] LABS: EGFR Non-African American 41.4 (>60)
[2018-07-17] MEDS: Sucralfate TAB* 1 GM PO SCH ×2 (07:34→11:56)
[2018-07-17] MEDS ORDERED: glipiZIDE TAB.XL* 2.5 MG PO SCH (09:00)
[2018-07-17] MEDS: Insulin LISPRO* 1 UNITS UNIT SUBCUT SCH ×3 (09:10→12:28)
[2018-07-17] MEDS: Cyanocobalamin INJ * 1,000 MCG/ML VIAL 1 ML VIAL IM SCH (09:30)
[2018-07-17] MEDS: Diltiazem CD CAP* 240 MG PO SCH (09:30)
[2018-07-17] MEDS: Omeprazole CAP* 20 MG PO SCH (09:30)
[2018-07-17] MEDS: Sertraline* 25 MG TAB PO SCH (09:30)
[2018-07-17] MEDS: Famotidine TAB* 20 MG PO SCH (09:30)
[2018-07-17] MEDS: Thiamine TAB* 100 MG TAB PO SCH (09:31)
[2018-07-17] MEDS: Folic Acid TAB* 1 MG PO SCH (09:31)
[2018-07-17 11:46] VITALS: BP 130/69
--- NOTE | 2018-07-17 16:16 | PN ---
Hospitalist Progress Note Date of Service: 07/17/18 . HOSPITALIST DISCHARGE NOTE: See dc instructions and summary by me (by Candace Durbin N.P.). Patient stable for dc dc instructions reviewed with the patient at the bedside. DC patient home today.
--- NOTE | 2018-07-18 05:54 | DS ---
CC: Dr. Rosa Tran * DISCHARGE SUMMARY: DATE OF ADMISSION: 07/14/18 DATE OF DISCHARGE: 07/17/18 ATTENDING PHYSICIAN: Dr. Jomar Kulkarni * (dictated by Candace Durbin NP). PRIMARY DIAGNOSES: 1. Chest pain. 2. Hypertensive urgency. 3. Confusion. 4. Escherichia coli urinary tract infection. SECONDARY DIAGNOSES: 1. Diabetes mellitus type 2. 2. History of pulmonary embolism. 3. Hypertension. 4. Gastroesophageal reflux disease. 5. Chronic pain. 6. Osteoporosis. 7. Insomnia. 8. Chronic kidney disease, stage 3. 9. Diabetic neuropathy. STUDIES WHILE IN THE HOSPITAL: 1. Brain CT, 07/14/18, reads as no acute intracranial findings or change since prior, chronic and age related changes. 2. Transthoracic echocardiogram, 07/15/18. E Learning Specialist's impression: Normal left ventricular systolic function, estimated ejection fraction is 55% to 60%, abnormal ventricular septal wall motion consistent right ventricular pacemaker, right ventricular global systolic function is normal, aortic leaflets mildly thickened, [id number] aortic regurgitation, [id number] aortic stenosis, mild mitral regurgitation, [id number] tricuspid regurgitation, mild-to- moderate pulmonary hypertension. Compared to study on 08/20/12, the LV function is the same. The aortic regurgitation and aortic stenosis are new. DISCHARGE MEDICATIONS: New home medications: 1. Doxycycline 100 mg p.o. b.i.d. for 7 days. 2. Glipizide XL 2.5 mg p.o. daily. Continued home medications: 1. Acetaminophen 650 mg p.o. q.6. 2. Maalox 30 mL p.o. q.6 p.r.n. 3. Docusate 100 mg p.o. daily p.r.n. 4. Famotidine 20 mg p.o. b.i.d. 5. Folic acid 1 mg p.o. daily. 6. Lorazepam 0.5 mg p.o. q.8 hours p.r.n. 7. Omeprazole 20 mg p.o. daily. 8. Oxycodone 5 mg p.o. q.6 p.r.n. 9. Sucralfate 1 g p.o. t.i.d. 10. Thiamine 100 mg p.o. daily. 11. Ambien 10 mg p.o. at bedtime p.r.n. 12. Diltiazem 240 mg p.o. daily. 13. Metformin 500 mg p.o. b.i.d. 14. Ondansetron 4 mg p.o. q.8 hours p.r.n. 15. Sertraline 50 mg p.o. daily. Changed home medications: None. Discontinued home medications: None. HISTORY OF PRESENT ILLNESS AND HOSPITAL COURSE: Ms. Johnson is a 73-year-old female with a past medical history of diabetes mellitus type 2, PE, hypertension , GERD, chronic pain, osteoporosis and CKD stage 3, who presented to the emergency room on 07/14/18 with complaints of chest pain. Please see the history and physical by Dr. Andreina Strickland for a full description of the events leading up to this hospitalization, but in summary, the patient stated that she was experiencing reflux symptoms over the past week that she described as burning from her throat to her chest. She was taking famotidine, omeprazole, and sucralfate as an outpatient, though those medications were not effective in decreasing her reflux. She did feel as though the pain became worse after the recent passing of her . In the emergency room, she was noted to have blood pressures with systolics up to 230. It was felt as though her chest pain was likely gastrointestinal in nature, though acute coronary syndrome could not be ruled out. Her EKG showed no ischemic changes and she had negative troponins. She was placed on hydralazine IV p.r.n. and her Cardizem was increased to 360 mg daily. On the night of admission after arriving to the floor, the patient was noted to be lethargic and confused. She had no neurological deficits and her brain CT was negative. It was suspected that this was pseudodementia or sundowning related to her baseline depression. Those symptoms were resolved the next morning. She continued to have chest pain, although it decreased in severity and was worse after meals. On 07/16/18, the patient reported that her chest pain was much improved and she was tolerating her diet well. She had no significant arrhythmias on telemetry. Because of her negative stress test in March 2018, ACS was ruled out. Her systolic blood pressures dropped into the 100s and she was put back on her typical dose of diltiazem at 240 mg daily. Her urine culture from 07/14/18 resulted in E. coli, which was pansensitive. She was placed on aztreonam, which she received for 3 days. Her confusion continued to wax and wane. It was felt as though the UTI could be contributing to those although because of her history of alcohol abuse, she was started on thiamine for concern for Wernicke's encephalopathy. While in the hospital, her blood glucose ranged from 150 to 290 and she was noted to have a hemoglobin A1c of 8.5%. Because of this, Endocrinology was asked to consult. Dr. Chase Rodriges saw the patient on 07/16/18 and felt as though the patient would not be safe to use insulin at home. He advised that the patient may continue her current low dose metformin as her GFR is between 30 and 45. He did recommend starting glipizide XL 2.5 mg daily, which she received for the first time on 07/17/18. He also recommended to consider starting sitagliptin 50 mg once daily in the morning at discharge and a controlled carbohydrate diet. Ms. Johnson is stable for discharge home today. Vital signs are as follows: Temp 97.8, heart rate 98, respiratory rate 16, O2 sat 97% on room air, blood pressure 130/69. DISCHARGE PLAN: Ms. Johnson will be discharged back to [facility]. Activity will be as tolerated. She will be on a diabetic, heart- healthy diet. In regards to her UTI, she will be started on doxycycline 100 mg p.o. b.i.d. for 7 days to complete a 10-day course of antibiotics. She will also be continued on glipizide 2.5 mg p.o. daily. She should follow up with her primary care provider to determine if she will require sitagliptin in the future. She should follow up with her primary care provider, Dr. Tran, in a week. This is a summarized report of a complex medical history and hospital stay. For further details, please see the entire medical record. TIME SPENT: Time for this discharge was 50 minutes, greater than half of that was spent [id number] with the patient discussing discharge plans and instructions. CANDACE DURBIN, LOAN UNDERWRITER [id number]/[facility] #: [id number] ALEXANDRA
== END 2018-07-17 17:50 | disposition home or self-care (01) | DRG 392 ==
LOC: ED 04:46 → MEDTELE 09:08 → OBSVTOIN 07-15 13:51 → MEDTELE 07-15 16:35 → MED 07-16 22:10
PROVIDERS: ADMIT Internal Medicine; ATTEND Internal Medicine
DX: K21.9 Gastro-esophageal reflux disease without esophagitis (principal); N39.0 Urinary tract infection, site not specified; E11.22 Type 2 diabetes mellitus with diabetic chronic kidney disease; N18.3 Chronic kidney disease, stage 3 (moderate); E11.21 Type 2 diabetes mellitus with diabetic nephropathy; I12.9 Hypertensive chronic kidney disease with stage 1 through stage 4 chronic kidney disease, or unspecified chronic kidney disease; M19.90 Unspecified osteoarthritis, unspecified site; F41.9 Anxiety disorder, unspecified; F32.9 Major depressive disorder, single episode, unspecified; G89.29 Other chronic pain; G47.00 Insomnia, unspecified; M81.0 Age-related osteoporosis without current pathological fracture; Z96.1 Presence of intraocular lens; K44.9 Diaphragmatic hernia without obstruction or gangrene; I16.0 Hypertensive urgency; E11.36 Type 2 diabetes mellitus with diabetic cataract; B96.20 Unspecified Escherichia coli [E. coli] as the cause of diseases classified elsewhere; D50.9 Iron deficiency anemia, unspecified; I35.0 Nonrheumatic aortic (valve) stenosis; E83.52 Hypercalcemia; K57.90 Diverticulosis of intestine, part unspecified, without perforation or abscess without bleeding; Z88.1 Allergy status to other antibiotic agents; Z88.0 Allergy status to penicillin; Z88.8 Allergy status to other drugs, medicaments and biological substances; Z86.711 Personal history of pulmonary embolism; Z95.0 Presence of cardiac pacemaker; Z90.710 Acquired absence of both cervix and uterus; Z90.722 Acquired absence of ovaries, bilateral; Z90.49 Acquired absence of other specified parts of digestive tract; Z82.49 Family history of ischemic heart disease and other diseases of the circulatory system; Z87.891 Personal history of nicotine dependence; Z98.1 Arthrodesis status; Z82.3 Family history of stroke; Z80.9 Family history of malignant neoplasm, unspecified; Z98.42 Cataract extraction status, left eye
CPT/HCPCS: 36415; 36600; 70450; 80048; 80053; 80320; 81003; 81015; 82272; 82607; 82728; 82746; 82803; 83036; 83540; 83550; 84443; 84484; 85014; 85018; 85025; 87077; 87086; 87186; 93005; 93306; 99284; A9270-GY; G0378; G0480; J0360; J1644; J2270; J2916; J3411; J3420

== ENCOUNTER 2018-09-02 07:07 | Emergency (ER) | payer MEDICARE ==
[2018-09-02] MEDS ORDERED: Lidocaine 2% VISCOUS* 15 ML UDC PO ONE (07:17)
[2018-09-02] MEDS ORDERED: Al Hydrox/Mg Hydrox/Simet LIQ* 30 ML UDC PO ONE (07:17)
[2018-09-02] MEDS ORDERED: Diltiazem CD CAP* 240 MG PO ONE (07:19)
[2018-09-02] MEDS ORDERED: Famotidine TAB* 20 MG PO ONE (07:20)
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
[2018-09-02 07:56] LABS: Hematocrit 28 % (35-47); Hemoglobin 8.8 g/dl (12.0-16.0); Mean Corpuscular HGB Conc 31 g/dl (31-36); Mean Corpuscular Hemoglobin 22 pg (27-31); Mean Corpuscular Volume 69 fL (80-97); Mean Platelet Volume 7.7 fL (7.4-10.4); Platelet Count 320 10^3/ul (150-450); Red Blood Count 4.06 10^6/ul (4.00-5.40); Red Cell Distribution Width 18 % (10.5-15); White Blood Count 10.6 10^3/ul (3.5-10.8)
[2018-09-02 08:10] LABS: EGFR Non-African American 37.9 (>60)
[2018-09-02 08:43] LABS: ABS Basophils 0.1 10^3/ul (0-0.2); ABS Eosinophils 0.3 10^3/ul (0-0.6); ABS Lymphocytes 2.3 10^3/ul (1.0-4.8); ABS Monocytes 0.9 10^3/ul (0-0.8); ABS Nucleated RBC 0 10^3/ul; Eosinophil % 2.6 % (0-6); Lymphocyte % 22.2 % (25-47); Nucleated Red Blood Cells % 0
[2018-09-02 10:29] VITALS: BP 169/101
== END 2018-09-02 10:28 | disposition home or self-care (01) ==
LOC: ED 07:07
DX: K21.9 Gastro-esophageal reflux disease without esophagitis (principal); Z87.891 Personal history of nicotine dependence; E11.9 Type 2 diabetes mellitus without complications; I10 Essential (primary) hypertension; Z86.711 Personal history of pulmonary embolism
CPT/HCPCS: 36415; 80053; 84484; 85025; 85060; 93005; 99283; A9270-GY

== ENCOUNTER 2018-09-25 18:08 | Emergency (ER) | payer MEDICARE ==
[2018-09-25] MEDS ORDERED: oxyCODONE TAB* 5 MG TAB PO ONE (22:08)
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
[2018-09-25 23:08] LABS: EGFR Non-African American 41.4 (>60)
[2018-09-25 23:21] LABS: ABS Basophils 0.1 10^3/ul (0-0.2); ABS Eosinophils 0.4 10^3/ul (0-0.6); ABS Lymphocytes 2.1 10^3/ul (1.0-4.8); ABS Neutrophils 8.4 10^3/ul (1.5-7.7); ABS Nucleated RBC 0 10^3/ul; Eosinophil % 3.5 %; Hematocrit 31 % (35-47); Hemoglobin 9.3 g/dl (12.0-16.0); Lymphocyte % 17.2 %; Mean Corpuscular HGB Conc 30 g/dl (31-36); Mean Corpuscular Hemoglobin 21 pg (27-31); Mean Corpuscular Volume 68 fL (80-97); Mean Platelet Volume 7.8 fL (7.4-10.4); Nucleated Red Blood Cells % 0.1; Platelet Count 451 10^3/ul (150-450); Red Blood Count 4.52 10^6/ul (4.00-5.40); Red Cell Distribution Width 19 % (10.5-15)
[2018-09-25] MEDS ORDERED: Lidocaine 2% VISCOUS* 15 ML UDC PO ONE (23:25)
[2018-09-25] MEDS ORDERED: Al Hydrox/Mg Hydrox/Simet LIQ* 30 ML UDC PO ONE (23:25)
[2018-09-26 01:12] LABS: Urine Appearance Clear; Urine Blood Negative (Negative); Urine Color Yellow; Urine Ketones Negative (Negative); Urine Protein 1+(30 mg/dL) (Negative); Urine Red Blood Cell Trace(0-2/hpf) (Absent); Urine Specific Gravity 1.025 (1.010-1.030); Urine Urobilinogen Negative (Negative); Urine White Blood Cell Trace(0-5/hpf) (Absent)
[2018-09-26 01:49] VITALS: BP 172/106
== END 2018-09-26 01:47 | disposition home or self-care (01) ==
LOC: ED 18:08
DX: N39.0 Urinary tract infection, site not specified (principal); B96.20 Unspecified Escherichia coli [E. coli] as the cause of diseases classified elsewhere; M54.6 Pain in thoracic spine; Z95.810 Presence of automatic (implantable) cardiac defibrillator; K21.9 Gastro-esophageal reflux disease without esophagitis; Z90.710 Acquired absence of both cervix and uterus; Z90.49 Acquired absence of other specified parts of digestive tract; Z90.89 Acquired absence of other organs; Z88.1 Allergy status to other antibiotic agents; Z88.0 Allergy status to penicillin; Z88.8 Allergy status to other drugs, medicaments and biological substances; Z87.891 Personal history of nicotine dependence
CPT/HCPCS: 36415; 80048; 81003; 81015; 85025; 87086; 99282; A9270-GY

== ENCOUNTER 2018-11-03 00:51 | Emergency (ER) | payer MEDICARE ==
[2018-11-03] MEDS ORDERED: NS 0.9% 1000 ML* 1,000 ML IV ONE (00:56)
[2018-11-03] MEDS ORDERED: Al Hydrox/Mg Hydrox/Simet LIQ* 30 ML UDC PO ONE (00:57)
[2018-11-03] MEDS ORDERED: Lidocaine 2% VISCOUS* 15 ML UDC PO ONE (00:57)
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
[2018-11-03 01:57] LABS: ABS Basophils 0.1 10^3/ul (0-0.2); ABS Eosinophils 0.3 10^3/ul (0-0.6); ABS Neutrophils 6.7 10^3/ul (1.5-7.7); ABS Nucleated RBC 0 10^3/ul; Eosinophil % 3.4 %; Hematocrit 26 % (35-47); Hemoglobin 7.8 g/dl (12.0-16.0); Lymphocyte % 19.5 %; Mean Corpuscular HGB Conc 30 g/dl (31-36); Mean Corpuscular Hemoglobin 20 pg (27-31); Mean Corpuscular Volume 65 fL (80-97); Mean Platelet Volume 8.4 fL (7.4-10.4); Nucleated Red Blood Cells % 0; Platelet Count 360 10^3/ul (150-450); Red Blood Count 3.97 10^6/ul (4.00-5.40); Red Cell Distribution Width 18 % (10.5-15); White Blood Count 10.1 10^3/ul (3.5-10.8)
[2018-11-03 02:03] LABS: ALT 10 U/L (7-52); AST 13 U/L (13-39); Albumin 3.4 g/dL (3.2-5.2); Albumin/Globulin Ratio 0.9 (1-3); Alkaline Phosphatase 94 U/L (34-104); Anion Gap 8 mmol/L (2-11); Blood Urea Nitrogen 22 mg/dL (6-24); CO2 Carbon Dioxide 22 mmol/L (22-32); Calcium 9.2 mg/dL (8.6-10.3); Chloride 102 mmol/L (101-111); EGFR Non-African American 48.4 (>60); Globulin 3.7 g/dL (2-4); Glucose 455 mg/dL (70-100); Sodium 132 mmol/L (135-145); Total Protein 7.1 g/dL (6.4-8.9)
[2018-11-03 03:31] LABS: Activated Partial Thrombo Time 24.6 seconds (26.0-36.3); INR 0.97 (0.77-1.02)
[2018-11-03 03:40] LABS: Iron 19 ug/dL (50-212); Total Iron Binding Capacity 532 mcg/dL (250-450); Transferrin 380 mg/dL (203-362)
[2018-11-03 04:00] LABS: Ferritin 5.2 ng/mL (11-307)
[2018-11-03] MEDS ORDERED: Insulin REGULAR(*) 1 UNITS UNIT SUBCUT ONE (04:00)
[2018-11-03] MEDS ORDERED: Temazepam CAP* 15 MG PO ONE (04:48)
[2018-11-03 07:23] VITALS: BP 169/93
== END 2018-11-03 08:24 | disposition home or self-care (01) ==
LOC: ED 00:51
DX: R07.89 Other chest pain (principal); D50.9 Iron deficiency anemia, unspecified; R00.0 Tachycardia, unspecified; R06.02 Shortness of breath; K21.9 Gastro-esophageal reflux disease without esophagitis; Z95.810 Presence of automatic (implantable) cardiac defibrillator; Z88.1 Allergy status to other antibiotic agents; Z88.0 Allergy status to penicillin; Z88.8 Allergy status to other drugs, medicaments and biological substances; Z87.891 Personal history of nicotine dependence
CPT/HCPCS: 36415; 36430; 80053; 82728; 83540; 83550; 84484; 85025; 85610; 85730; 86850; 86900; 86901; 86922; 93005; 96360; 96361; 96372; 99282; A9270-GY; P9040